=== PATIENT | female | born 1945 | race Caucasian/White ===

== ENCOUNTER 2020-07-23 06:36 | Emergency (ER) | payer OTHER, SELFPAY ==
[2020-07-23 06:41] VITALS: BP 189/115; PULSE 70; RESP 16; TEMP 36.4; O2SAT 98
--- NOTE | 2020-07-23 06:45 | DI.CT_ITS ---
Exam(s) CT RENAL COLIC WO EXAM: CT RENAL COLIC WO CLINICAL HISTORY: right flank pain. TECHNIQUE: Imaging Protocol: Axial computed tomography images with coronal and sagittal reformatted images were created and reviewed. COMPARISON: No exams were available for comparison FINDINGS: ABDOMEN: Lung Bases: Normal where visualized. Liver: Normal density. 1.9 cm right hepatic cyst. Gallbladder and biliary tract: No radiodense calculus or biliary ductal dilation. Pancreas: Normal density, no abnormal calcifications or inflammatory process. Spleen: Normal. Kidneys: Normal size, contour and axis.No radiodense stones or obstructive uropathy. No masses seen. Adrenal glands: No mass is seen. Lymph nodes: Within normal limits. Abdominal Aorta: Abdominal portion non-dilated. Mild atherosclerosis. PELVIS: Bladder:Symmetric distention, no gross wall thickening. Bowel: No obstruction or bowel wall thickening. No evidence of appendicitis. Diverticulosis of the s igmoid colon, but no evidence of acute diverticulitis. Peritoneal cavity: No ascites, collection or mesenteric inflammatory response. No free air. Reproductive organs: There is a 2.9 x 2.8 cm right ovarian cyst. The reproductive organs are otherwi se unremarkable. Bones: Within normal limits. Soft Tissues: Within normal limits. IMPRESSION: No acute abdominal or pelvic process. RADIATION DOSE DELIVERED: 1,211.12mGy.cm Total DLP DATA REPOSITORY: All CT scans at this facility are submitted to the National Radiology Data Registry (NRDR) Dose Index Registry (DIR) with the [employer] (A[employer]). RADIATION OPTIMIZATION: All CT scans at this facility use at least one of these dose optimization te chniques: automated exposure control; mA and/or kV adjustment per patient size (includes targeted exa ms where dose is matched to clinical indication); or iterative reconstruction.
--- NOTE | 2020-07-23 06:48 | ED.GENADUL_ITS ---
Discharge Plan Disposition Patient Disposition: HOME Condition: Good Discharge Details Clinical Impression: Back pain, UTI (urinary tract infection) Primary Care Provider: Radha Maynard ED Provider: Michael Her Meds and New Rx's Prescriptions: New lidocaine 5 % adhesive patch,medicated 1 patch topical DAILY Qty: 15 RF: 0 cephalexin 500 mg capsule 500 mg PO TID Qty: 21 RF: 0 Continued metoprolol succinate 50 mg Capsule,Sprinkle,Er 24hr 50 mg PO QAM RF: 0 hydrochlorothiazide 25 mg Tablet RF: 0 Discharge Instructions Instructions: Urinary Tract Infection in Women (ED), Back Pain (ED) Additional Instructions: Back pain appears to be musculoskeletal but you do have evidence of UTI. Treat pain with alternating doses of Tylenol 1 gram and 4 hours later Motrin 400 to 600 mg as needed. Try heat and stretching. Lidocaine patches as directed. We will treat for the UTI as well so be sure to get the antibiotic. Follow up with your doctor this week. Return to ED if worse pain, abdominal pain, fever, vomiting. Referrals: Primary Care Provider [Outside] Discharge Data Discharge Date/Time-TO BE ENTERED AT DEPARTURE: 07/23/20 09:10 Discharge Physician: Michael Her Medical Decision Making Elderly female presenting with right flank pain that wraps around to the front. Pain initially intermittent now constant. Denies fever or urinary symptoms. Has had appendectomy but still has gallbladder. Does not have abdominal tenderness on exam. Has no CVAT. Will place IV give ondansetron and ketorolac for symptoms. Send urinalysis as well as CBC and BMP. CT stone study ordered. CBC and BMP are unremarkable. White count is normal. Urinalysis positive for leukocyte esterase and on micro has white cells and bacteria but no epithelial cells very suggestive of UTI. CT scan is negative for any acute pathology. Specifically no stones seen. No stranding or swelling of the right kidney. Patient reports some relief with ketorolac IV but still pain with movement. Reexam shows that she continues to have no CVAT. Pain is more lower lumbar area and able to reproduce with palpation in one specific area, suggesting musculoskeletal in nature. We will go ahead and give a dose of ceftriaxone and continue treatment of the UTI with cephalexin. Not convinced this is pyelonephritis. We will treat the back pain with acetaminophen and ibuprofen as well as lidocaine patches. Heat, stretching, massage. Follow-up with primary care next week. Return to ED for fever, mental status changes, vomiting, abdominal pain, worsening back pain, other concerns. Differential Diagnosis Differential Diagnosis: Renal colic, pyelonephritis, gallbladder disease Lab Data Lab results reviewed: Yes I reviewed the patient's lab results. HPI General Mode of arrival: ambulatory . Date/Time Provider Initiated Documentation: 07/23/20 06:38 . Limitations to Documentation: no limitations . Information obtained by: patient and RN notes reviewed . HPI Narrative: Patient presents with right flank pain for the last 4 days. Initially, started as an intermittent pain that would come and go. Now constant but waxes and wanes in terms of intensity. She has associated nausea throughout the day but no vomiting. Denies any urinary symptoms. Denies fever. Pain does seem to wrap around towards the front. She has not taken anything for the pain as she was not sure what was causing it. Initially thought probably just musculoskeletal pain from working out in the yard. Now pain much more intense. Not worse with movement. Unable to tolerate the pain this morning and presents to the ED. Related Data Home Medications Medication Instructions Recorded Confirmed cephalexin 500 mg PO TID #21 cap 07/23/20 hydrochlorothiazide 07/23/20 lidocaine 1 patch TOPICAL DAILY #15 ea 07/23/20 metoprolol succinate 50 mg PO QAM 07/23/20 07/23/20 Previous Rx's Medication Instructions Recorded cephalexin 500 mg PO TID #21 cap 07/23/20 lidocaine 1 patch TOPICAL DAILY #15 ea 07/23/20 Allergies Allergy/AdvReac Type Severity Reaction Status Date / Time codeine Allergy Unverified 07/23/20 09:33 General Stated Complaint: FlankPain MORE: 3 Review of Systems Narrative: As documented in HPI otherwise negative as below. Const: no fever, chills, weakness Resp: no cough, SOB, pleuritic pain CV: no CP, diaphoresis, edema, syncope GI: no vomiting, diarrhea Neuro: no headache, numbness, focal weakness, confusion PFSH Medical History Hypertension Surgical History Hx of appendectomy Social History Smoking/Tobacco Use Status: Never Smoking risk assessment performed?: Yes Alcohol Intake: never Substance use type: does not use Do you feel safe at home: Yes Do you feel safe in your relationship?: Yes Exam Narrative Exam Narrative: Const: Obese elderly female in NAD. HEENT: NC/AT. Normal facial exam. Eyes: Normal conjunctiva and sclera. Neck: Supple. Trachea midline. Lungs: Normal respiratory effort. Lungs are clear. Cor: RRR without murmur/gallop. GI: Soft. NT/ND. No guarding or rebound. Back: No CVAT Neuro: A+O x 3. Normal speech, mentation, gait. Cranial nerves II - XII grossly intact. No gross motor or sensory deficit. Ext: No C/C/E. Skin: Warm and dry without rash. Course Vital Signs Vital signs: Vital Signs Temperature 97.5 F L 07/23/20 06:41 Pulse 70 07/23/20 06:41 Respiratory Rate 16 07/23/20 06:41 Blood Pressure 189/115 H 07/23/20 06:41 Pulse Oximetry 98 07/23/20 06:41 Temperature 97.5 F L 07/23/20 06:41 Temperature Source Skin 07/23/20 06:41 Pulse 70 07/23/20 06:41 Respiratory Rate 16 07/23/20 06:41 Blood Pressure 189/115 H 07/23/20 06:41 Pulse Oximetry 98 07/23/20 06:41 Pain Level 8 07/23/20 06:41
[2020-07-23 06:52] VITALS: BP 213/104
[2020-07-23 07:07] LABS: Bilirubin Negative (Negative); Blood Negative (Negative); Clarity Clear (Clear); Glucose Negative (Negative); Ketones Negative (Negative); Leukocyte Esterase Moderate (Negative); Nitrite Negative (Negative); Specific Gravity 1.025 (1.005-1.025); Urobilinogen 0.2 EU/dL (Up TO 0.2); pH 5.5 (5-8)
[2020-07-23 07:12] LABS: RBC 0-2 HPF (0-2)
[2020-07-23 07:13] LABS: Bacteria Moderate HPF (Negative); C & S Indicated? Yes; Casts Negative LPF (Negative); Crystals Negative HPF (Negative); Epithelial Cells Few HPF (Negative); Mucus Negative (Negative)
[2020-07-23] MEDS: Ondansetron 4 MG/2 ML VIAL IVP (07:30)
[2020-07-23] MEDS: Normal Saline Flush 10 ML SYR IVP (07:35)
[2020-07-23] MEDS: Ketorolac 30 MG/ML VIAL 15 MG IVP (07:35)
--- NOTE | 2020-07-23 08:14 | DI.VRAD_ITS ---
PROCEDURE INFORMATION: Exam: CT Abdomen And Pelvis Without Contrast Exam date and time: 07/23/2020 6:59 AM Age: 75 years old Clinical indication: Nausea and other: Right flank pain TECHNIQUE: Imaging protocol: Computed tomography of the abdomen and pelvis without contrast. Radiation optimization: All CT scans at this facility use at least one of these dose optimization techniques: automated exposure control; mA and/or kV adjustment per patient size (includes targeted exams where dose is matched to clinical indication); or iterative reconstruction. COMPARISON: No relevant prior studies available. FINDINGS: Liver: Simple hepatic cyst in the right lobe measures 16 mm Gallbladder and bile ducts: Normal. No calcified stones. No ductal dilation. Pancreas: Normal. No ductal dilation. Spleen: Normal. No splenomegaly. Adrenal glands: Normal. No mass. Kidneys and ureters: Normal. No hydronephrosis. Stomach and bowel: Colonic diverticulosis is present without evidence for inflammation. Appendix: No evidence of appendicitis. Intraperitoneal space: Unremarkable. No free air. No significant fluid collection. Vasculature: Unremarkable. No abdominal aortic aneurysm. Lymph nodes: Unremarkable. No enlarged lymph nodes. Urinary bladder: Unremarkable as visualized. Reproductive: Unremarkable as visualized. Probable dominant ovarian follicular cyst present on the right. This measures 2.8 cm Bones/joints: Lumbar spine degenerative disc disease is noted. Soft tissues: Unremarkable. IMPRESSION: No acute findings Dictated and Authenticated by: Aden Maldonado MD. Ordering:TERESO Rodriguez MD
[2020-07-23] MEDS: cefTRIAXone 1 GM/50 ML BAG IVPB (08:37)
[2020-07-23 08:38] LABS: Abs Immature Grans 0.02 10^3/uL (0.0-0.06); Absolute Basophil Count 0.09 10^3/uL (0.0-0.2); Absolute Eosinophil Count 0.17 10^3/uL (0.0-0.7); Absolute Lymphocyte Count 2.78 10^3/uL (1.2-3.4); Absolute Monocyte Count 0.74 10^3/uL (0.1-0.8); Absolute Neutrophil Count 4.12 10^3/uL (1.2-6.7); Basophils % 1.1; Eosinophils % 2.1; HCT 46.3 % (36.0-46.0); HGB 15.1 g/dL (11.2-15.7); Immature Grans % 0.3; Lymphocytes % 35.1; MCH 27.7 pg (27.0-33.0); MCHC 32.6 % (32.0-36.0); Monocytes % 9.3; Neutrophils % 52.1; Nucleated RBC 0 %; Platelet Count 236 10^3/uL (130-400); RBC 5.45 10^6/uL (3.93-5.22); RDW-SD 40.4 fL; WBC 7.92 10^3/uL (4.4-10.8)
[2020-07-23 08:44] LABS: BUN 25 mg/dL (7-18); CREATININE 0.9 mg/dL (0.55-1.02); Calcium 9.2 mg/dL (8.5-10.1); Chloride 102 mmol/L (98-107); Glucose 102 mg/dL (74-106); Potassium 3.7 mmol/L (3.5-5.1); Sodium 141 mmol/L (136-145)
[2020-07-23] MEDS: Lidocaine 5% Patch 1 PATCH TP (09:00)
[2020-07-23 09:10] VITALS: BP 172/85; PULSE 72; RESP 16; TEMP 36.8; O2SAT 98
== END 2020-07-23 09:10 | disposition home or self-care (01) ==
LOC: ER 09:16
PROVIDERS: Emergency Provider Emergency Medicine; PCP Nurse Practitioner
DX: N39.0 Urinary tract infection, site not specified (principal); M54.9 Dorsalgia, unspecified; R11.0 Nausea
CPT/HCPCS: 80048; 96365; 96374; 96375; 99284; 74176; 81003; 81015; 85025; 87086; 99283; J0696; J1885; J2405

== ENCOUNTER → 2021-10-05 00:26 | Outpatient (CLI) | payer OTHER, SELFPAY ==
--- OUTSIDE RECORDS SUMMARY | 2021-10-05 00:27 | XMS_ITS | Encounter Summary ---
:1945 Author Organization [facility] Address [address] [facility] [place] [address] Care Team Providers Name Role Phone Joanne Weaver MD Primary Care Provider Encounter Details Date Type Department Care Team Description 03/20/2016 Hospital Encounter XRay at [facility] Arianna, Yovani Mitchell, S/P orthopedic [address] [place] surgery, follow-up [place], [place] [facility] [id number] [place] [phone] [place] [address] Social History Tobacco Use Types Packs/Day Years Used Date Never Smoker Alcohol Use Standard Drinks/Week Comments No 0 (1 standard drink = 0.6 oz pure alcoho l) Sex Assigned at Date Recorded Not on file documented as of this encounter Medications at Time of Discharge Medication Sig Dispensed Refills Start Date End Date meTOPROLOL tartrate Take 50 mg by mouth 2 0 (LOPRESSOR) 50 mg Tablet times daily. aspirin 81 mg EC tablet 0 06/22/2008 documented as of this encounter Plan of Treatment Scheduled Orders Name Type Priority Associated Diagnoses Order S chedule XR Ankle Stress Imaging Routine S/P orthopedic surgery, 1 Occurrences starting views Right follow-up exam 03/20/2016 un til 03/20/2016 documented as of this encounter Visit Diagnoses Diagnosis S/P orthopedic surgery, follow-up exam Follow-up examination, following other s urgery documented in this encounter Care Teams Sanforizer Relationship Specialty Start Date End Date Joanne Weaver MD PCP - General 01/16/10 [address] [place] [address] documented as of this encounter
--- OUTSIDE RECORDS SUMMARY | 2021-10-05 00:27 | XMS_ITS | Encounter Summary ---
:1945 Author Organization [facility] [place] [address] Care Team Providers Name Role Phone Joanne Weaver MD Primary Care Provider Reason for Referral Physical Therapy (Routine) - Specialty Diagnoses / Procedures Referred By Contact Refer red To Contact Physical Therapy Diagnoses Closed fracture of shaft of right fibula, unspecified fracture morphology, initial encounter Tl Greene MD [facility] [place] [address] Referral ID Status Reason Start Date Expiration Date Visits V isits Requested Authorized [id number] Evaluate and 04/16/2016 10/13/2016 12 12 Treat Reason for Visit Reason Comments Right Ankle Pain Encounter Details Date Type Department Care Team Description 04/16/2016 Office Visit Orthopaedics at [facility] Yovani Keller MD Closed fracture of [facility] of [facility] [address], [place] [phone] ORTHOPAEDIC fracture morphology, SURGERY initial encounter [place] [id number] Social History Tobacco Use Types Packs/Day Years Used Date Never Smoker Alcohol Use Standard Drinks/Week Comments No 0 (1 standard drink = 0.6 oz pure alcoho l) Sex Assigned at Date Recorded Not on file documented as of this encounter Last Filed Vital Signs Vital Sign Reading Time Taken Comments Blood Pressure 189/90 04/16/2016 2:11 PM EST Pulse 85 04/16/2016 2:11 PM EST Temperature - - Respiratory Rate - - Oxygen Saturation - - Inhaled Oxygen Concentration - - Weight 86.2 kg (190 lb) 04/16/2016 2:11 PM EST Height 154.9 cm (5' 1) 04/16/2016 2:11 PM EST Body Mass Index 35.9 04/16/2016 2:11 PM EST documented in this encounter Progress Notes Tl Greene MD - 04/16/2016 2:20 PM EST Date of surgery is 03/06/2016. Surgery is open reduction, internal fixation of right syndesmosis. INTERVAL HISTORY: Kristi Quiroz is a very pleasant 70-year-old female being seen today in routine followup. She is doing well. She is not having any discomfort bearing weight. She has not been ambulating; however, she does stand and bear weight. She is pleased with her progress thus far. Her wound has healed up nicely. She is not taking any narcotics. She uses a crutch to ambulate. PHYSICAL EXAM: General: No acute distress. Awake, alert, and oriented. Right lower extremity exam reveals a well-healed surgical incision. There is no erythema, discharge, or purulence. There is no fluctuance noted. She has sensation intact to light touch in the superficial peroneal, deep peroneal, and tibial nerve distributions. Intact EHL, FHL, tibial anterior, and gastrocnemius-soleus complex. Her toes were warm and well perfused. She has minimal pedal edema. IMAGING: Multiple views of the right ankle were obtained, and they were reviewed today with the patient. These demonstrate intact hardware in appropriate position. These were reviewed with the patient. They show an intact and congruent ankle mortise. There is no evidence of screw or hardware complication. ASSESSMENT/PLAN: A 70-year-old female presenting 6 weeks status post syndesmotic fixation with TightRope and screw. She is doing well. Plan going forward will be to begin to advance weightbearing approximately 2 weeks, approximately 25% per week. We will schedule a followup appointment for her in 6 weeks with x-rays prior; however, if she is feeling well and doing great, she can cancel this appointment. We offered her physical therapy; however, she denied this. She is not interested. If she calls back and changes her mind, we will be happy to prescribe this for her. Yovani Keller MD - 04/16/2016 2:20 PM EST I saw the patient in conjunction with Dr. Tl Greene and agree with his assessment and plan. Recovering well status post ORIF of syndesmosis. We looked at her x-rays and discussed plans moving forward. Plan as outlined in Dr. Greene's note. documented in this encounter Plan of Treatment Scheduled Referrals Name Type Priority Associated Diagnoses Order S chedule Referral to Outpatient Referral Routine Closed fracture of Or dered: Physical Therapy shaft of right 7 fibula, unspecified fracture morphology, initial encounter documented as of this encounter Visit Diagnoses Diagnosis Closed fracture of shaft of right fibula , unspecified fracture morphology, initial encounter documented in this encounter Care Teams Refractory Grinder Operator Relationship Specialty Start Date End Date Joanne Weaver MD PCP - General 01/16/[address] [place] [id number] documented as of this encounter
--- OUTSIDE RECORDS SUMMARY | 2021-10-05 00:27 | XMS_ITS | Encounter Summary ---
:1945 Author Organization [facility] [place] [address] Care Team Providers Name Role Phone Joanne Weaver MD Primary Care Provider Encounter Details Date Type Department Care Team Description 02/27/2016 Hospital Encounter XRay at [facility] Arianna, Julio César Flores fracture [address] [facility] [id number] [place] [phone] [place] [address] Social History Tobacco Use Types Packs/Day Years [...] by mouth 2 0 (LOPRESSOR) 50 mg times daily. Tablet aspirin 81 mg EC 0 06/22/2008 tablet oxyCODONE (ROXICODONE) Take 1 tablet by mouth 25 tablet 0 0 03/06/2016 03/20/2016 5 mg Tablet every 4 hours as needed. traMADol (ULTRAM) 50 Take 1-2 tablets by 30 tablet 0 201503/06/2016 mg Tablet mouth every 4 hours as needed for Pain. Use the minimum amount of this medication. Take as infrequently as possible. Ween off of this medication as rapidly as possible. ondansetron Take 1 tablet by mouth 20 tablet 1 02/23/2016 0 03/20/2016 (ZOFRAN-ODT) 8 mg every 8 hours as needed Tablet, Rapid Dissolve for Nausea. cephALEXin (KEFLEX) 0 06/22/200803/20 500 mg capsule documented as of this encounter Plan of Treatment Not on filedocumented as of this encounter Procedures Procedure Name Priority Date/Time Associated Diagnosis Comme nts XR CHEST PA AND Routine 02/27/2016 2:08 PM Maisonneuve fractur e Results for this LATERAL EST procedure are i n the results section. documented in this encounter Results XR Chest PA & Lateral (Generic) (02/27/2016 2:08 PM EST) Anatomical Region Laterality Modality Chest N/A Digital Radiography Specimen (Source) Anatomical Location Collection Method / Collectio n Time Received Time / Laterality Volume Impressions 02/27/2016 2:43 PM EST No acute cardiopulmonary process. I have personally reviewed the image(s) and the residents interpretation and agree with the findings, Karis jensen t 02/27/2016 2:43 PM Narrative 02/27/2016 2:43 PM EST EXAMINATION: XR CHEST PA AND LATERAL (GENERIC) CLINICAL HISTORY: Preoperative TECHNIQUE: PA and lateral sitting uprigh t chest radiographs COMPARISON: Chest radiograph October 252015 FINDINGS: Lungs are symmetrically expanded and cong ar. There is no pneumothorax or pleural effusion. Cardiac silhouette, juan and p ulmonary vasculature are within normal limits. Procedure Note Karis Jacobs MD - 02/27/2016Formatt ing of this note might be different from the original. EXAMINATION: XR CHEST PA AND LATERAL (GE GloopleIC) CLINICAL HISTORY: Preoperative TECHNIQUE: PA and lateral sitting uprigh t chest radiographs COMPARISON: Chest radiograph October 252015 FINDINGS: Lungs are symmetrically expanded and cong ar. There is no pneumothorax or pleural effusion. Cardiac silhouette, juan and p ulmonary vasculature are within normal limits. IMPRESSION No acute cardiopulmonary process. I have personally reviewed the image(s) and the residents interpretation and agree with the findings, Karis bravo 02/27/2016 2:43 PM Yovani Keller MD IMG DX ORDERABLES documented in this encounter Visit Diagnoses Diagnosis Maisonneuve fracture documented in this encounter Care Teams Occupational Therapy Director Relationship Specialty Start Date End Date Joanne Weaver MD PCP - General 01/16/10 [address] [place] [address] documented as of this encounter
--- OUTSIDE RECORDS SUMMARY | 2021-10-05 00:27 | XMS_ITS | Encounter Summary ---
:1945 Author Organization [facility] [place] [address] Care Team Providers Name Role Phone Joanne Weaver MD Primary Care Provider Encounter Details Date Type Department Care Team Description 03/06/2016 Hospital Encounter Same Day Program at [facility], Yovani Mitchell, Ankle fracture, Ginny Oseguera MD right, closed, [facility] initial encounter [facility] (Primary Dx) [place], [place] SURGERY [id number] [place] [address] [facility] Social History Tobacco Use Types Packs/Day Years Used Date Never Smoker Alcohol Use Standard Drinks/Week Comments No 0 (1 standard drink = 0.6 oz pure alcoho l) Sex Assigned at Date Recorded Not on file documented as of this encounter Last Filed Vital Signs Vital Sign Reading Time Taken Comments Blood Pressure 196/156 03/06/2016 4:00 PM EST Pulse 57 03/06/2016 3:14 PM EST Temperature 37 ??C (98.6 ??F) 03/06/2016 11:58 AM EST Respiratory Rate 18 03/06/2016 3:14 PM EST Oxygen Saturation 99% 03/06/2016 4:00 PM EST Inhaled Oxygen Concentration - - Weight 88.5 kg (195 lb) 03/06/2016 11:58 AM EST Height 154.9 cm (5' 1) 03/06/2016 11:58 AM EST Body Mass Index 36.84 03/06/2016 11:58 AM EST documented in this encounter Discharge Instructions Discharge InstructionsTierce-Hazard, Tali E - 03/06/2016 4:19 PM EST 1. You have received medication before and/or during your procedure, which affects judgment and reaction time. 2. Do not drive, operate machinery, drink alchololic beverages, or make important decisions for 24 hours. 3. Be careful on stairs, as you may be unsteady on your feet. 4. You may eat a regular diet as tolerated. 5. Do not smoke if you are alone. 6. IV site- slight redness or tenderness is normal, you can use warm compresses. If tenderness and redness increases or foul drainage occours, please contact your M.D. Patient InstructionsFletcher Morrell MD - 03/06/2016 3:07 PM EST Orthopaedic Surgery Same Day Discharge Instructions [id number] Kristi Quiroz Discharge Instructions: Activity: ??? Do not bear weight (no pushing, pulling or lifting) with the operative extremity until your follow-up appointment. ??? Keep the operative extremity elevated above the level of the heart as much as possible for the next few days to help reduce swelling and pain. ??? Intermittently apply ice to the outside of the dressing for 20 minutes at a time throughout the first few days following surgery. This will help reduce pain and swelling. Keep a close eye on your skin to prevent ice ascencio. Dressings: Keep the splint placed in the operating room in place until you are seen back in follow-up. Bathing/showering: You should not let your wounds or dressings get wet until you are seen in follow-up. If you are going to shower, leave the splinted extremity out of the water, or cover with a sturdyplastic bag taped securely at the top prior to showering to prevent water from seeping in. It may beeasier to sponge bathe for now. Medications: 1. You will be sent home with, a narcotic medication. Take this medication for pain as needed. Try to taper your use over the next week or two as your post- operative pain improves 2. The pain medication you are on can cause constipation, so increase your intake of fluids and fiber while you are taking them. You may also take an ijme-nhw-xjyjtxo stool softener, like Senokot, to facilitate a bowel movement. 3. If you need a renewal on your narcotic pain medication, you need to give the Orthopedic clinic enough time to process your request. This can take up to three days, so plan accordingly. 4. No driving is allowed if taking narcotic pain medications. 5. You have also been prescribed Aspirin. This medication is being used for its blood-thinning properties to help prevent blood clots while you are less mobile and active. Take this medication 81 mg twice daily as prescribed. Again, this medication has not been prescribed as a pain-reliever, so you should take it even when you are feeling comfortable. Avoid anti-inflammatory type medications (also called NSAIDs) including ibuprofen, motrin, Advil, naproxen, naprosyn, and Alleve for the next 3 months. There is some evidence that these may slow bone remodeling, which would inhibit healing of your rotator cuff repair/fracture. Call the Orthopaedic Clinic ([phone] during business hours -; after-hours or on weekends [phone] and ask for the Ortho resident on-call ) if you develop: fevers, chills, night sweats, nausea, vomitng, wound discharge, as well as numbness, tingling, increased pain, pain with active or passive extension of fingers/toes in the affected limb, or other questions or concerns. Future Appointments Date Time Provider Department Center 03/20/2016 3:30 PM Yovani Keller MD [facility] [address] [facility] documented in this encounter Medications at Time of Discharge Medication Sig Dispensed Refills Start Date End Date meTOPROLOL tartrate Take 50 mg by mouth 0 (LOPRESSOR) 50 mg Tablet 2 times daily. aspirin 81 mg EC tablet 0 06/22/2008 oxyCODONE (ROXICODONE) 5 Take 1 tablet by 25 tablet 0 03/0603/20/2016 mg Tablet mouth every 4 hours as needed. ondansetron (ZOFRAN-ODT) Take 1 tablet by 20 tablet 1 02/2203/20/2016 8 mg Tablet, Rapid mouth every 8 hours Dissolve as needed for Nausea. cephALEXin (KEFLEX) 500 0 06/22/2008 0 03/20/2016 mg capsule documented as of this encounter Progress Notes Gilberto Rutherford RN - 03/06/2016 12:18 PM EST Images from the original note were not included. Patient Name: Kristi Quiroz Patient Age: 70 y.o. Birthdate: 1945 Admit date: 03/06/2016 Attending Physician: Yovani Keller MD Skin: documented in this encounter H&P Notes Yovani Keller MD - 03/06/2016 11:38 AM EST The patient's history and physical exam have been reviewed. There has been no interval change from that of the pre-operative history and physical exam performed within the last 30 days. This patient isundergoing an orthopaedic surgical procedure. We will utilize nonpharmacological modalities to help with pain, however, this patient will require narcotic pain medication to treat acute, post-surgical,pain. The patient will be instructed to wean from these medications as soon as reasonably possible. The Patient has read, signed and understands the Acute Opioid Therapy Informed Consent. The Prescription Drug monitoring website has been queried and and this query recorded in the electronic medical record. Opioid PDMP 02/27/2016 [place] PDMP Query Date 03/06/2016 I spoke with and examined the patient on the date of the primary author's note, prior to proceeding to the operating room. I agree with the primary author's assessment and plan. I reviewed the risks, benefits, alternatives to, and recovery from the proposed procedure. I confirmed the correct operativesite. The patient expressed understanding and wished to proceed with operative treatment. Yovani Keller MD MS Orthopaedic Surgery Attending documented in this encounter Miscellaneous Notes Op Note - Yovani Keller MD - 03/06/2016 3:12 PM EST Operative Note ?? Patient Name: Kristi Quiroz : [id number] MR#: [id number] ?? Case Date: 03/06/2016 ?? Surgeon: Surgeon(s) and Role: * Yovani Keller MD - Primary * Fletcher Morrell MD - Resident-Net Software Developer ?? Preoperative diagnosis: Maisonneuve fracture right ankle ?? Postoperative diagnosis: Same ?? Procedure(s): ORIF SYNDESMOSIS, RIGHT ANKLE (WRVU 8.8) ? Anesthesia: General, Regional ?? Findings: Syndesmosis well reduced with tightrope ?? Complications: None known ? Fluids: Per anesthesia ?? Estimated Blood Loss: 5 cc ?? Drains: None known ?? Disposition: awakened from anesthesia, extubated and taken to the recovery room in a stable condition, having suffered no apparent untoward event. ?? Condition: doing well without problems ?? Infection Bundle used? N/A INDICATIONS: The patient is a 70-year-old female who fell and sustained a syndesmotic injury to her right ankle with a high fibula fracture. After discussing the risks and benefits of proceeding with operative fixation, she elected to proceed. Implant Name Type Inv. Item Serial No. Cribbing Setter Lot No. LRB No. Used Action KIT,REPAIR,KNOTLESS,TIGHTROPE ([id number]) - [id number] IMPLANTS KIT,REPAIR,KNOTLESS,TIGHTROPE ([id number]) [employer] - [id number] Right 1 Implanted SCREW,CRTX,STAP,3.5X45MM ([id number]) - [id number] IMPLANTS SCREW,CRTX,STAP,3.5X45MM ([id number]) [employer] - [id number] Right 1 Implanted DESCRIPTION OF PROCEDURE: The patient was met and greeted in the preoperative holding area. Consent was confirmed, and the site was marked. She received a block by the Anesthesia Block Team. She was brought into the operating suite and laid supine on the operating table, where anesthetic was administered by the anesthesia team. A C-arm was brought in to obtain a true lateral of the unaffected ankle for comparison. At that point, the right lower extremity was then prepped and draped in typical sterile fashion. Timeout was performed in accordance with [facility] universal protocol. We made an incision directly over the lateral aspect of fibula, spread down with tenotomy scissors to the lateral bone of the fibula after incising with a 15 blade approximately 3 cm. Once down to the bone,we used C-arm and fluoroscopy guidance to place a pin across this tib-fib joint aiming approximately 20 degrees anterior, starting on the lateral cortex of the fibula, going through all 4 cortices. The syndesmosis was heldreduced while this was placed. Once we had pinned the tib-fib into place and found that it could be closed down, we took a lateral c-arm image to confirm our reduction. The lateral was identical to the contralateral side. We then over-drilled all 4 cortices with the tightrope drill. We then passed the tightrope through with the needle, through all 4 cortices, flipped the toggle on the medial aspect, and then gradually tightened the tightrope down to the lateral cortex of the fibula. While holding the ankle in dorsiflexion. We brought in C-arm imaging, again confirming reduction of the syndesmosis. At that point, with the tightrope completely tightened down after toggling, we placed a 3.5 cortical screw 4 to 5 mm superior in the same trajectory as the tightrope, first by drilling with a 2.5 drill bit across the fibula and tibia, again aiming 20 degrees anterior and parallel to the joint line. We then placed a 45 mm screw after measuring with the measuring device. We irrigated the wound thoroughly, confirmed fluoroscopic imaging our C-arm and reduction, and then irrigated the wound thoroughly and placed two 2-0 buried Vicryl sutures, then three 3-0 nylon sutures in a vertical mattress interrupted fashion. There were no major issues. She was then placed in a posterior slab and U splint, covered by Xeroform 4 x 4s and sterile Webril. Brief Op Note - Yovani Keller MD - 03/06/2016 2:55 PM EST Brief Operative Note Patient Name: Kristi Quiroz : [id number] MR#: [id number] Case Date: 03/06/2016 Surgeon: Surgeon(s) and Role: * Yovani Keller MD - Primary * Fletcher Morrell MD - Resident-Net Software Developer Preoperative diagnosis: Maisonneuve fracture right ankle Postoperative diagnosis: Same Procedure(s): ORIF SYNDESMOSIS, ANKLE (WRVU 8.8) Anesthesia: General, Regional Findings: Syndesmosis well reduced with tightrope Complications: None known Fluids: Per anesthesia Estimated Blood Loss: 5 cc Drains: None known Disposition: awakened from anesthesia, extubated and taken to the recovery room in a stable condition, having suffered no apparent untoward event. Condition: doing well without problems Infection Bundle used? N/A Attestation: Case Date: 03/06/2016 I was present and I participated during the entire procedure (does not need to include opening and closing). (Please see the Surgical Encounter Summary for any Implant and Specimen details pertinent to this patient.) documented in this encounter Plan of Treatment Not on filedocumented as of this encounter Procedures Procedure Name Priority Date/Time Associated Diagnosis Comme nts XR FLUORO NO RAD Routine 03/06/2016 3:00 PM Resul ts for this <1HR - OR USE EST procedure are in the results section. MODIFIER SMALL 03/06/2016 2:00 PM Maisonneuve fracture FRAGMENT SYNTHES EST right ankle ORIF SYNDESMOSIS, 03/06/2016 2:00 PM Maisonneuve fract ure ANKLE (WRVU 8.8) EST right ankle ORIF SYNDESMOSIS, Routine 03/06/2016 11:34 AM ANKLE EST documented in this encounter Results XR Fluoro No Rad <1Hr - OR Use (03/06/2016 3:00 PM EST) Specimen (Source) Anatomical Location Collection Method / Collectio n Time Received Time / Laterality Volume Narrative RAD - 03/06/2016 3:52 PM EST This order does not need a radiologist i nterpretation. ?? Yovani Keller MD IMG FLUORO ORDERABLES Performing Organization Address City/State/ZIP Code Phon e Number RAD RAD [place], [place] documented in this encounter Visit Diagnoses Diagnosis Ankle fracture, right, closed, initial e ncounter - Primary documented in this encounter Administered Medications Inactive Administered Medications - up to 3 most recent administrations Medication Order MAR Action Action Date Dose Rate Site fentaNYL 50mcg/mL injection Given 03/06/2016 12:35 PM EST 25 mcg 25 mcg, Intravenous, EVERY 5 MIN PRN, Starting on Fri03/05/16 at 1703, Until Fri03/06/16 at 1901, Pain, block sedation, Routine lactated ringers infusion 1,000 New Bag 03/06/2016 12:00 PM ES T 1,000 mLs 100 mL/hr mL 1,000 mL, at 100 mL/hr, Intravenous, CONTINUOUS, Starting on Fri03/06/16 at 1200, Until Fri03/06/16 at 1656, Day of Surgery (Day of Procedure) midazolam (PF) (VERSED) 1 mg/mL injectio n 1 mg Given 03/06/2016 12:30 PM EST 1 mg 1 mg, Intravenous, EVERY 5 MIN PRN, Starting on Fri03/05/16 at 1703, Until Fri03/06/16 at 1901, block, Routine scopolamine Patch Applied 03/06/2016 12:45 PM 1 patch 0 1- Ear Behind (TRANSDERM-SCOP) 1.5 mg (1 EST (Left) mg over 3 days) patch 1 patch 1 patch, Transdermal, EVERY 72 HOURS, First dose on Fri03/06/16 at 1245, Until Discontinued, Routine documented in this encounter Active and Recently Administered Medications Times are shown in EST. Scheduled Medication Order 03/04/2016 03/05/2016 03/06/2016 ceFAZolin (ANCEF) 2g in dextrose 5% 50 mL (COMPLETED) 1415 (Given - Provider: Angela Weber CRNA) 2 g, Intravenous, EVERY 3 HOURS, 1 dose, First dose on Fri03/06/16 at 1200, Administer over 30 Minutes, Redose after 3 hours., Intra-Operative (Intra- Procedure), Indication for (Active or Suspected): Prophylaxis scopolamine (TRANSDERM-SCOP) 1.5 mg (1 mg over 3 days) patch 1 p atch 1245 (Patch Applied - Provider: Gilberto Rutherford RN) 1 patch, Transdermal, EVERY 72 HOURS, Fi rst dose on Fri03/06/16 at 1245, Until Discontinued, Routine Continuous Medication Order 03/04/2016 03/05/2016 03/06/2016 lactated ringers infusion 1,000 mL 1200 (New Bag - Provider: Gilberto Rutherford, RN) 1,000 mL, at 100 mL/hr, Intravenous, CON TINUOUS, Starting Fri03/06/16 at 1200, Until Fri03/06/16 at 1656, Day of Surgery (Day of Procedure) PRN Medication Order 03/04/2016 03/05/2016 03/06/2016 fentaNYL 50mcg/mL injection 1235 (Given - Provider: Gilberto Rutherford, RN) 25 mcg, Intravenous, EVERY 5 MIN PRN, St arting 03/05/16 at 1703, Until Fri03/06/16 at 1901, Pain, block sedation, Routine lidocaine (XYLOCAINE) 10 mg/mL (1 %) injection 3 mg 3 mg (0.3 mL), Subcutaneous, ONCE PRN, 1 dose, Starting Fri03/06/16 at 1139, Until Fri03/06/16 at 1656, for discomfort with PIV insertion, Day of Surgery (Day of Procedure), Routine midazolam (PF) (VERSED) 1 mg/mL injection 1 mg 1230 (Given - Provider: Gilberto Rutherford, RN) 1 mg, Intravenous, EVERY 5 MIN PRN, Star ting 03/05/16 at 1703, Until Fri03/06/16 at 1901, block, Routine sodium chloride 0.9 % flush 5-20 mL 5-20 mL, Intravenous, EVERY 1 MIN PRN, S tarting Fri03/06/16 at 1139, Until Fri03/06/16 at 1656, flush, Flush pertains to all indwelling lines. Flush per protocol found in the job aid using the link prov ided on this medication record., Day of Surgery (Day of Procedur e), Routine No Frequency Medication Order 03/04/2016 03/05/2016 03/06/2016 fentaNYL Citrate (PF) 100 mcg/2 mL (50 mcg/mL) syringe 1230 (Due) 1 dose, Starting 03/06/16 at 1222, Un til Carmelita 03/07/16 at 0029, GILBERTO RUTHERFORD: cabinet override documented in this encounter Care Teams Fine Craft Artist Relationship Specialty Start Date End Date Joanne Weaver MD PCP - General 01/16/[address] [place] [id number] documented as of this encounter
--- OUTSIDE RECORDS SUMMARY | 2021-10-05 00:27 | XMS_ITS | Encounter Summary ---
:1945 Author Organization [facility] [place] [address] Care Team Providers Name Role Phone Joanne Weaver MD Primary Care Provider Reason for Visit Reason Comments Right Ankle Pain Encounter Details Date Type Department Care Team Description 03/20/2016 Office Visit [facility]ed[facility] at [facility] [place]anna, Yovani Mitchell MD S/P orthopedic surgery, follow-up exam ( Primary Dx); [facility] Ankle syn desmosis disruption, right, subsequent encounter; [facility] Ankle fracture, right, closed, with rout ine healing, [place] [address] ORTHOPAEDIC [phone] SURGERY [place], [place] [address] Social History Tobacco Use Types Packs/Day Years Used Date Never Smoker Alcohol Use Standard Drinks/Week Comments No 0 (1 standard drink = 0.6 oz pure alcoho l) Sex Assigned at Date Recorded Not on file documented as of this encounter Last Filed Vital Signs Vital Sign Reading Time Taken Comments Blood Pressure 193/91 03/20/2016 3:38 PM EST Pulse 67 03/20/2016 3:38 PM EST Temperature - - Respiratory Rate - - Oxygen Saturation - - Inhaled Oxygen Concentration - - Weight 86.2 kg (190 lb) 03/20/2016 3:38 PM EST Height 154.9 cm (5' 1) 03/20/2016 3:38 PM EST Body Mass Index 35.9 03/20/2016 3:38 PM EST documented in this encounter Progress Notes Sharla Love, SCRAP PICKER - 03/20/2016 3:30 PM EST Chief complaint: right ankle surgery. First global post op appointment. Problem List Items Addressed This Visit Right Maissoneuve fracture of proximal fibula Other Visit Diagnoses S/P orthopedic surgery, follow-up exam - Primary Relevant Orders XR Ankle Min 3 views Right (Generic) Durable Medical Equipment Order Ankle syndesmosis disruption, right, subsequent encounter Relevant Orders Durable Medical Equipment Order History of present illness: Kristi Quiroz is a 70 y.o. year-old female who is here for first global post op appointment. She is doing well. She has minimal pain and no longer using narcotic analgesics. She has been nonweightbearing with a plaster postop splint. She is using aspirin as directed in EDH for DVT prophylaxis. Her appetite is good. Mild constipation with narcotic use yet resolved sincediscontinuing pain medication. No interval falls or injuries. No fevers chills systemic or constitutional complaints. No calf pain, chest pain or shortness breath. Her health is been stable otherwise and she is here for first global post op appointment. Past medical history: Patient Active Problem List Diagnosis Date Noted ??? Right Maissoneuve fracture of proximal fibula 02/23/2016 Medications: ??? meTOPROLOL tartrate (LOPRESSOR) 50 mg Tablet ??? aspirin 81 mg EC tablet Allergies: Allergies Allergen Reactions ??? Acetaminophen CIS - Palpitations, high HR ??? Codeine Phosphate CIS - palpitations, elevated HR Social history: Social History Substance Use Topics ??? Smoking status: Never Smoker ??? Smokeless tobacco: Not on file ??? Alcohol use No Review of systems: No chest pain or shortness of breath No fevers, night sweats or chills Vital signs: Temp: -- BP (!) 193/91 (BP Location (NBP): Right arm, Patient Position: Sitting, BP Cuff Sizes: Adult (25-34 cm)) Pulse 67 Ht 154.9 cm (5' 1) Wt 86.2 kg (190 lb) BMI 35.9 kg/m2 Physical Exam: 70-year-old female in no acute distress. Here with her sister. Right lower extremity exam: Arrives in a wheelchair nonweightbearing plaster removed for examination. Surgical incision is well approximated with no erythema or evidence of infection. Surgical sutures removed by ATC tolerated well with Steri-Strips applied. There is no tenderness of the lateral ankle and syndesmosis. Mild dependent edema. Able wiggle her toes EHL/FHL 5/5. Tolerates gentle dorsiflexion 5??. Plantar flexion 20?? inversion eversion painless. 5/5 strength in peroneal and posterior tibialis tendon. Skin is warm anddry no diaphoresis. Foot is sensate and well perfused, DP and PT 2+ to palpation. Sensation intact to 1st webspace, medial and lateral sole and dorsum. Imaging: Personal review of the patient's imaging reveals: Right ankle x-ray reveals stable surgical repair of syndesmosis injury the right ankle. No hardware complications noted. Assessment: 70 y.o. year-old female is doing quite well approximately 2 weeks postop no complications noted. Plan: Dr Keller looked in on the patient and agrees with above. At this time, we will transition to a postop boot non-weightbearing for a total of 6 weeks postop. Advised to continue with oral aspirin forDVT prophylaxis as directed in the EDH. Avoid oral NSAID's to allow for optimal healing. She can usecool packs and acetaminophen prn for pain no greater than 3 grams per day for breakthrough pain. We did discuss the issue of hardware removal post op and she has essentially a low demand lifestyle and has no interest in surgical hardware removal in the future. She will continue to work with her home care OT/PT for ADL assistance. No weightbearing as stated above. Pt agrees, questions solicited/answered, will return as scheduled and as needed for concerns or questions. Pt understands they may also call us prn for above. Follow up: 4 weeks with a right ankle x-ray. Order in EDH. Sooner prn. This plan was discussed with the patient and they are in agreement. All of the patient's questions were answered. The above dictation was made with voice recognition software documented in this encounter Plan of Treatment Not on filedocumented as of this encounter Results XR Ankle Min 3 views Right (Generic) (04/16/2016 1:24 PM EST) Anatomical Region Laterality Modality Ankle Right Digital Radiography Specimen (Source) Anatomical Location Collection Method / Collectio n Time Received Time / Laterality Volume Narrative 04/16/2016 1:52 PM EST EXAMINATION: XR ANKLE MIN 3 VIEWS RIGHT (GENERIC) CLINICAL HISTORY: right ankle syndesmosi s ORIF. TECHNIQUE: ? COMPARISON: February 2016 FINDINGS: The cast is now removed. Bones: Fibula-the proximal fibular fracture, th e basilar no fracture, is not included on these images. Joints: No dislocation is seen. Syndesmosis-interval ORIF syndesmosis wi th placement of tight rope and transverse cortical screws that are unch anged in appearance and alignment. The ankle mortise remains congruent. Unchang ed tiny osteophytes arising from the medial malleolus. Small radiolucency at the medial talar dome is indeterminate for cartilage injury and degenerative ch leobardo. No osteochondral fragment seen. Soft tissue: Residual soft tissue swelli ng and presence of a small ankle effusion. A tubular soft tissue density traveling anterior to the Achilles tendon is suspicious for an accessory soleus muscl e. Impression 1. ??The proximal fibular fracture is no t included. 2. ??ORIF syndesmosis with no hardware c omplications and congruent ankle mortise. 3. ??Radiolucency at the medial talar do me, better seen on today's examination could be related to cartilage injury. 4. ??Possible presence of an accessory s oleus muscle. Procedure Note Yesica Denis MD - 04/16/2016Formatt ing of this note might be different from the original. EXAMINATION: XR ANKLE MIN 3 VIEWS RIGHT (GENERIC) CLINICAL HISTORY: right ankle syndesmosi s ORIF. TECHNIQUE: COMPARISON: February 2016 FINDINGS: The cast is now removed. Bones: Fibula-the proximal fibular fracture, th e basilar no fracture, is not included on these images. Joints: No dislocation is seen. Syndesmosis-interval ORIF syndesmosis wi th placement of tight rope and transverse cortical screws that are unch anged in appearance and alignment. The ankle mortise remains congruent. Unchang ed tiny osteophytes arising from the medial malleolus. Small radiolucency at the medial talar dome is indeterminate for cartilage injury and degenerative ch leobardo. No osteochondral fragment seen. Soft tissue: Residual soft tissue swelli ng and presence of a small ankle effusion. A tubular soft tissue density traveling anterior to the Achilles tendon is suspicious for an accessory soleus muscl e. Impression 1. The proximal fibular fracture is not included. 2. ORIF syndesmosis with no hardware com plications and congruent ankle mortise. 3. Radiolucency at the medial talar dome , better seen on today's examination could be related to cartilage injury. 4. Possible presence of an accessory dylan eus muscle. Yovani Keller MD IMG DX ORDERABLES documented in this encounter Visit Diagnoses Diagnosis S/P orthopedic surgery, follow-up exam - Primary Follow-up examination, following other s urgery Ankle syndesmosis disruption, right, sub sequent encounter Ankle fracture, right, closed, with rout ine healing, subsequent encounter S/P orthopedic surgery, follow-up exam Follow-up examination, following other s urgery documented in this encounter Care Teams Low Altitude Air Defense Officer Relationship Specialty Start Date End Date Joanne Weaver MD PCP - General 01/16/[address] [place] [phone] documented as of this encounter
--- OUTSIDE RECORDS SUMMARY | 2021-10-05 00:27 | XMS_ITS | Encounter Summary ---
:1945 Author Organization [facility] [address] Care Team Providers Name Role Phone Joanne Weaver MD Primary Care Provider Reason for Visit Reason Onset Date Comments Appointment 04/17/2016 Encounter Details Date Type Department Care Team Description 04/17/2016 Telephone Orthopaedics at [facility] Yovani Keller MD Appointment [facility] [place] [address] ORTHOPAEDIC SURGERY [phone] [place] [address] (Wo rk) Social History Tobacco Use Types Packs/Day Years Used Date Never Smoker Alcohol Use Standard Drinks/Week Comments No 0 (1 standard drink = 0.6 oz pure alcoho l) Sex Assigned at Date Recorded Not on file documented as of this encounter Miscellaneous Notes Telephone Encounter - Abbey Clark - 04/24/2016 3:41 PM EST No response from patient, letter sent Telephone Encounter - Abbey Clark - 04/23/2016 10:22 AM EST LMOM #2 to call to schedule appointment listed below Telephone Encounter - Flor Verma - 04/17/2016 9:45 AM EST LM#1 to schedule follow up with Dr Keller in 6 wks for XR 03/06/16 ORIF RIGHT SYNDESMOSIS ANKLE. documented in this encounter Plan of Treatment Not on filedocumented as of this encounter Visit Diagnoses Not on filedocumented in this encounter Care Teams Food Counter Attendant Relationship Specialty Start Date End Date Joanne Weaver MD PCP - General 01/16/[address] [place] [phone] documented as of this encounter
--- OUTSIDE RECORDS SUMMARY | 2021-10-05 00:27 | XMS_ITS | Encounter Summary ---
:1945 Author Organization [facility] [place] [address] Care Team Providers Name Role Phone Joanne Weaver MD Primary Care Provider Encounter Details Date Type Department Care Team Description 04/16/2016 Hospital Encounter XRay at [facility] Yovani Keller, S/P orthopedic [facility] surgery, follow-up [place], [place] [facility] exam [id number] [place] [phone] [place] [address] Social History Tobacco Use Types Packs/Day Years [...] Priority Date/Time Associated Diagnosis Comme nts XR ANKLE MIN 3 Routine 04/16/2016 1:24 PM S/P orthopedic Resul ts for this VIEWS RIGHT EST surgery, follow-up procedure are in exam the results section. documented in this encounter Results XR Ankle Min 3 [...] urgery documented in this encounter Care Teams Paintless Dent Repair Technician Relationship Specialty Start Date End Date Joanne Weaver MD PCP - General 01/16/[address] [place] [phone] documented as of this encounter
--- OUTSIDE RECORDS SUMMARY | 2021-10-05 00:27 | XMS_ITS | Encounter Summary ---
:1945 Author Organization [facility] [place] [address] Care Team Providers Name Role Phone Joanne Weaver MD Primary Care Provider Encounter Details Date Type Department Care Team Description 12/01/2020 Interpretation Only [facility], Radha Otto, [address] [place], [place] [address] [address] [place], [place] [phone] (Wo rk) Social History Tobacco Use Types Packs/Day Years Used Date Never Smoker Alcohol Use Standard Drinks/Week Comments No 0 (1 standard drink = 0.6 oz pure alcoho l) Sex Assigned at Date Recorded Not on file documented as of this encounter Plan of Treatment Not on filedocumented as of this encounter Procedures Procedure Name Priority Date/Time Associated Diagnosis Comme nts XR TOE(S) MIN 2 Routine 12/01/2020 3:26 PM Result s for this VIEW LEFT EDT procedure are i n the results section. documented in this encounter Results XR Toe(s) Min 2 view Left (Generic) (12/01/2020 3:26 PM EDT) P athologist Signature PT CLASS O DH RAD ADMITDTTM DH RAD PT SUNIL RUSSELL INFO [id number]^B DH RAD RISTOL^[place] NE EXAM DESC XRTOETVL^XR DH RAD LEFT TOES^RIS Anatomical Region Laterality Modality Left Radiographic Imaging Specimen (Source) Anatomical Location Collection Method / Collectio n Time Received Time / Laterality Volume Impressions 12/01/2020 4:06 PM EDT No acute findings. Thank you for letting us participate in the care of this patient. ??If you are a health care provider and have any questi ons regarding this report, please contact the number below. ??For patients who have questions please contact the health child care associate teacher that requested your imaging first. ? Electronically signed by: PAULETTE Adams MD, [facility] ([phone]), at 12/01/2020 4:06 PM Narrative 12/01/2020 4:06 PM EDT EXAMINATION: XR LEFT TOES CLINICAL HISTORY: pain in left third toe TECHNIQUE: 3 views of the left toes were obtained. COMPARISON: None FINDINGS: No acute fracture or dislocation. Soft tissues are within normal limits. Procedure Note Paulette Toth MD - 12/01/2020Formatt ing of this note might be different from the original. EXAMINATION: XR LEFT TOES CLINICAL HISTORY: pain in left third toe TECHNIQUE: 3 views of the left toes were obtained. COMPARISON: None FINDINGS: No acute fracture or dislocation. Soft tissues are within normal limits. IMPRESSION No acute findings. Thank you for letting us participate in the care of this patient. If you are a health care provider and have any questi ons regarding this report, please contact the number below. For patients w ho have questions please contact the health child care associate teacher that requested your imaging first. Electronically signed by: PAULETTE Adams MD, [facility] ([phone]), at 12/01/2020 4:06 PM Radha Maynard SIDING APPLICATOR IMG DX ORDERABLES documented in this encounter Visit Diagnoses Not on filedocumented in this encounter Care Teams Daub Color Mixer Relationship Specialty Start Date End Date Joanne Weaver MD PCP - General 01/16/10 [address] [place] [address] documented as of this encounter
--- OUTSIDE RECORDS SUMMARY | 2021-10-05 00:27 | XMS_ITS | Encounter Summary ---
:1945 Author Organization [facility] [place] [address] Care Team Providers Name Role Phone Joanne Weaver MD Primary Care Provider Encounter Details Date Type Department Care Team Description 02/27/2016 Clinical Support Same Day at [facility] [place] [address] Social History Tobacco Use Types Packs/Day Years Used Date Never Smoker Alcohol Use Standard Drinks/Week Comments No 0 (1 standard drink = 0.6 oz pure alcoho l) Sex Assigned at Date Recorded Not on file documented as of this encounter Progress Notes Suzanne Rosales RN - 02/27/2016 1:00 PM EST PAT questionnaire reviewed with patient while in Pre Admission testing. Pre- operative instruction booklet reviewed. Patient verbalizes a good understanding of all information reviewed. PLAN: Testing: Lab,EKG. Sent for CXR. Special medication instructions: Procedure date: 03-06. Pt states Had vomiting after a colo in [place], Dr Keller aware and will consider block to decrease this. documented in this encounter Plan of Treatment Not on filedocumented as of this encounter Procedures Procedure Name Priority Date/Time Associated Diagnosis Comme nts EKG 12-LEAD Routine 02/27/2016 1:32 PM Maisonneuve fracture R esults for this EST procedure are i n the results section . documented in this encounter Results EKG 12 Lead (02/27/2016 1:32 PM EST) Component Value Ref Range Test Analysis Performed Pathologis t Method Time At Signature Ventricular rate 53 BPM MUSE SYSTEM Atrial Rate 53 BPM MUSE SYSTEM P-R Interval 130 ms MUSE SYSTEM QRS Duration 112 ms MUSE SYSTEM Q-T Interval 446 ms MUSE SYSTEM QTC Calculated 418 ms MUSE SYSTEM (Bezet) Calculated P [place] 21 degrees MUSE SYSTEM Calculated R [place] 11 degrees MUSE SYSTEM Calculated T [place] 30 degrees MUSE SYSTEM INTERPRETATION Sinus bradycardia MUSE SY STEM Incomplete right bundle branch block Borderline ECG When compared with ECG of 22-JUN-2008 12:37, No significant change was found Confirmed by MD Iam, Elie ([id number]) on 02/27/2016 2:01:03 PM Specimen Anatomical Collection Method Collection Time Receive d Time (Source) Location / / Volume Laterality 02/27/2016 1:32 PM 7 2:01 EST PM EST Yovani Keller MD ECG ORDERABLES Performing Organization Address City/State/ZIP Code Phon e Number MUSE SYSTEM documented in this encounter Visit Diagnoses Diagnosis Maisonneuve fracture documented in this encounter Care Teams Hospital Medical Assistant Relationship Specialty Start Date End Date Joanne Weaver MD PCP - General 01/16/[address] [place] [phone] documented as of this encounter
--- OUTSIDE RECORDS SUMMARY | 2021-10-05 00:27 | XMS_ITS | Encounter Summary ---
:1945 Author Organization [facility] Address [place] [address] Care Team Providers Name Role Phone Joanne Weaver MD Primary Care Provider Encounter Details Date Type Department Care Team Description 03/20/2016 Hospital Encounter XRay at [facility] Yovani Keller, S/P orthopedic [facility] surgery, follow-up [place], [place] [facility] exam [id number] [place] [phone] [place] [address] Social History Tobacco Use Types [...] Comme nts XR ANKLE MIN 3 Routine 03/20/2016 3:31 PM S/P orthopedic Resul ts for this VIEWS RIGHT EST surgery, follow-up procedure are in exam the results section. documented in this encounter Results XR Ankle Min 3 views Right (Generic) (03/20/2016 3:31 PM EST) Anatomical Region Laterality Modality Ankle Right Digital Radiography Specimen (Source) Anatomical Location Collection Method / Collectio n Time Received Time / Laterality Volume Impressions 03/20/2016 3:56 PM EST Status post open repair of distal tibiofibular joint. Narrative 03/20/2016 3:56 PM EST EXAMINATION: XR ANKLE MIN 3 VIEWS RIGHT (GENERIC) CLINICAL HISTORY: check alignment and he aling TECHNIQUE: Three views right ankle COMPARISON: C-arm spot views right ankle one 03/06/2016 and three views right ankle 02/23/2016. FINDINGS: Since the prior study of 02/23/2016, a s michael transverse screw has been placed across the distal fibula and tibia. Ther e are also metallic anchors along the lateral surface of the distal fibula and medial surface of the distal tibia. The tibial/fibular articulation is normal. T he ankle joint mortise is uniform. An overlying cast obscures bone detail. Procedure Note Akira Calle MD - 03/20/2016Format ting of this note might be different from the original. EXAMINATION: XR ANKLE MIN 3 VIEWS RIGHT (GENERIC) CLINICAL HISTORY: check alignment and he aling TECHNIQUE: Three views right ankle COMPARISON: C-arm spot views right ankle one 03/06/2016 and three views right ankle 02/23/2016. FINDINGS: Since the prior study of 02/23/2016, a s michael transverse screw has been placed across the distal fibula and tibia. Ther e are also metallic anchors along the lateral surface of the distal fibula and medial surface of the distal tibia. The tibial/fibular articulation is normal. T he ankle joint mortise is uniform. An overlying cast obscures bone detail. IMPRESSION Status post open repair of distal tibiof ibular joint. Yovani Keller MD IMG DX ORDERABLES documented in this encounter Visit Diagnoses Diagnosis S/P orthopedic surgery, follow-up exam Follow-up examination, following other s urgery documented in this encounter Care Teams Dental Ceramist Relationship Specialty Start Date End Date Joanne Weaver MD PCP - General 01/16/[address] [place] [phone] documented as of this encounter
--- OUTSIDE RECORDS SUMMARY | 2021-10-05 00:27 | XMS_ITS | Clinical Summary ---
:1945 Author Organization [facility] [place] [address] Care Team Providers Name Role Phone Joanne Weaver MD Primary Care Provider Allergies Active Allergy Reactions Severity Noted Date Comments Acetaminophen CIS - Palpitat ions, high HR Codeine Phosphate CIS - palp itations, elevated HR Medications Medication Sig Dispensed Refills Start Date End Date Status aspirin 81 mg EC tablet 0 06/22/2008 Active meTOPROLOL tartrate Take 50 mg by 0 Active (LOPRESSOR) 50 mg mouth 2 times Tablet daily. Active Problems Problem Noted Date Hypertension 03/20/2016 Right Maissoneuve fracture of proximal fibula 02/23/20 16 Immunizations Name Administration Dates Next Due Influenza Vaccine, Unspecified Formulation 01/27/2016 Family History Medical History Relation Comments Diabetes Neg Hx Social History Tobacco Use Types Packs/Day Years Used Date Never Smoker Alcohol Use Standard Drinks/Week Comments No 0 (1 standard drink = 0.6 oz pure alcoho l) Sex Assigned at Date Recorded Not on file Last Filed Vital Signs Vital Sign Reading Time Taken Comments Blood Pressure 189/90 04/16/2016 2:11 PM EST Pulse 85 04/16/2016 2:11 PM EST Temperature 37 ??C (98.6 ??F) 03/06/2016 11:58 AM EST Respiratory Rate 18 03/06/2016 3:14 PM EST Oxygen Saturation 99% 03/06/2016 4:00 PM EST Inhaled Oxygen Concentration - - Weight 86.2 kg (190 lb) 04/16/2016 2:11 PM EST Height 154.9 cm (5' 1) 04/16/2016 2:11 PM EST Body Mass Index 35.9 04/16/2016 2:11 PM EST Plan of Treatment Health Maintenance Due Date Last Done Comments Covid-19 Vaccine (#1) 07/18/1950 Hepatitis C Screening 1964 Lipid Screening 1964 Tdap adult 1965 Tetanus vaccine 1965 Colonoscopy 07/18/1991 Zoster vaccine (1 of 2) 1996 Advance Directive 2001 Bone Density Scan 07/18/2011 Pneumoccocal Vaccine: 65+ (1 - PCV) 07/18/2011 Influenza (Flu) vaccine (1 of 1 - Influenza standard 10/25/2021 01/27/2016 series) Medical Devices Implanted Type Area Separator Tender Device Shelf Model / Identifier Expiration Serial / Date Lot Screw,Crtx,Stap,3.5x45mm ([id number]) - [id number] IMPLANTS Right: DO NOT USE [id number] / Implanted: Qty: 1 on 03/06/2016 by Yovani Keller MD at [facility] [employer] - / [id number] Insurance Payer Benefit Plan / Subscriber ID Effective Dates Phone Addre ss Type Group MEDICARE MEDICARE PART A [id number] 2011-Present [phone] [place] [id number] Advance Directives Latest Code Status on File Code Status Date Activated Date Inactivated Comments Full Code 03/05/2016 5:03 PM 03/06/2016 7:01 PM Does patient have capacity to make decision: Yes Full Code 02/24/2016 1:28 AM 02/24/2016 6:04 PM Does patient have capacity to make decision: Yes Care Teams Assistant Women'S Soccer Coach Relationship Specialty Start Date End Date Joanne Weaver MD PCP - General 01/16/[address] [place] [phone]
--- OUTSIDE RECORDS SUMMARY | 2021-10-05 00:27 | XMS_ITS | Encounter Summary ---
:1945 Author Organization [facility] [place] [address] Care Team Providers Name Role Phone Joanne Weaver MD Primary Care Provider Encounter Details Date Type Department Care Team Description 03/06/2016 Surgery Main Operating Room Yovani Keller MD ORIF SYNDESMOSIS, ANKLE [facility].8[facility] ORTHOPAEDIC [place], [place] [id number] [place], [place] [id number] [phone] Social History Tobacco Use Types Packs/Day Years Used Date Never Smoker Alcohol Use Standard Drinks/Week Comments No 0 (1 standard drink = 0.6 oz pure alcoho l) Sex Assigned at Date Recorded Not on file documented as of this encounter Last Filed Vital Signs Vital Sign Reading Time Taken Comments Blood Pressure 181/73 03/06/2016 3:30 PM EST Pulse 57 03/06/2016 3:14 PM EST Temperature 37 ??C (98.6 ??F) 03/06/2016 11:58 AM EST Respiratory Rate 18 03/06/2016 3:14 PM EST Oxygen Saturation 99% 03/06/2016 3:30 PM EST Inhaled Oxygen Concentration - - Weight 88.5 kg (195 lb) 03/06/2016 11:58 AM EST Height 154.9 cm (5' 1) 03/06/2016 11:58 AM EST Body Mass Index 36.84 03/06/2016 11:58 AM EST documented in this encounter Discharge Instructions Discharge InstructionsTali Cosme - 03/06/2016 4:19 PM EST 1. You [...] EST Orthopaedic Surgery Same Day Discharge Instructions [id number] Kristi Quiroz Discharge Instructions: Activity: ??? Do [...] taking them. You may also take an kxmg-fqm-uvjrrip stool softener, like Senokot, to facilitate a [...] rotator cuff repair/fracture. Call the Orthopaedic Clinic ([phone] during business hours -; after-hours or on weekends [phone] and ask for the Ortho resident on-call ) if you develop: fevers, chills, night sweats, nausea, vomitng, wound discharge, as well as numbness, tingling, increased pain, pain with active or passive extension of fingers/toes in the affected limb, or other questions or concerns. Future Appointments Date Time Provider Department Center 03/20/2016 3:30 PM Yovani Keller MD [facility] Ortho [address] [place] [address] CLIN documented in this encounter Medications at [...] the electronic medical record. Opioid PDMP 02/27/2016 MD PDMP Query Date 03/06/2016 I spoke with [...] Note ?? Patient Name: Kristi Quiroz : [id number] MR#: [id number] ?? Case Date: 03/06/2016 ?? Surgeon: Surgeon(s) and Role: * Yovani Keller MD - Primary * Fletcher Morrell MD - Resident-Drilling Field Operator ?? Preoperative diagnosis: Maisonneuve fracture right ankle [...] Implant Name Type Inv. Item Serial No. Digital Director Lot No. LRB No. Used Action KIT,REPAIR,KNOTLESS,TIGHTROPE ([id number]) - [id number] IMPLANTS KIT,REPAIR,KNOTLESS,TIGHTROPE ([id number]) [employer] - [id number] Right 1 Implanted SCREW,CRTX,STAP,3.5X45MM ([id number]) - [id number] IMPLANTS SCREW,CRTX,STAP,3.5X45MM ([id number]) [employer]THES - [id number] Right 1 Implanted DESCRIPTION OF PROCEDURE: The [...] Operative Note Patient Name: Kristi Quiroz : [id number] MR#: [id number] Case Date: 03/06/2016 Surgeon: Surgeon(s) and Role: * Yovani Keller MD - Primary * Fletcher Morrell MD - Resident-Drilling Field Operator Preoperative diagnosis: Maisonneuve fracture right ankle Postoperative [...] City/State/ZIP Code Phon e Number RAD RAD [place], [place] documented in this encounter Visit Diagnoses Not on filedocumented in this encounter Administered Medications Inactive Administered [...] mg over 3 days) patch 1 p atc 1245 (Patch Applied - Provider: Gilberto Rutherford [...] mg 1230 (Given - Provider: Gilberto Rutherford, CHRIS) 1 mg, Intravenous, EVERY 5 MIN PRN, [...] mcg/mL) syringe 1230 (Due) 1 dose, Starting Fri03/06/16 at 1222, Un til Carmelita 03/07/16 at 0029, GILBERTO RUTHERFORD: cabinet override documented in this encounter Care Teams Light Oil Operator Relationship Specialty Start Date End Date Joanne Weaver MD PCP - General 01/16/[address] [place] [address] documented as of this encounter
--- OUTSIDE RECORDS SUMMARY | 2021-10-05 00:27 | XMS_ITS | Encounter Summary ---
:1945 Author Organization [facility] [place] [address] Care Team Providers Name Role Phone Joanne Weaver MD Primary Care Provider Encounter Details Date Type Department Care Team Description 02/27/2016 Laboratory Appointment Lab at [facility] [place] [address] Social History Tobacco Use Types Packs/Day Years Used Date Never Smoker Alcohol Use Standard Drinks/Week Comments No 0 (1 standard drink = 0.6 oz pure alcoho l) Sex Assigned at Date Recorded Not on file documented as of this encounter Plan of Treatment Not on filedocumented as of this encounter Procedures Procedure Name Priority Date/Time Associated Diagnosis Comme nts HEMOGRAM Routine 02/27/2016 1:45 PM Maisonneuve fracture R esults for this EST procedure are i n the results section. DIFFERENTIAL, Routine 02/27/2016 1:45 PM Maisonneuve fracture Results for this AUTOMATED EST procedure are i n the results section. CBC (WITH DIFF) Routine 02/27/2016 1:45 PM Maisonneuve fractur e EST BASIC METABOLIC Routine 02/27/2016 1:45 PM Maisonneuve fractur e Results for this PANEL (NON-FASTING) EST procedur e are in the results section. documented in this encounter Results Differential, Automated (02/27/2016 1:45 PM EST) athologist Signature Neutrophils % 59.8 % [facility] Neutr Abs (ANC) 5.75 1.70 - [facility] 6.10 [facility] x10(3)/[facility] LABORATORY Lymphocytes % 30.2 % [facility] Lymphocytes Abs 2.9 0.9 - 3.2 [facility] x10(3)/[facility] LABORATORY Monocytes % 8.0 % [facility] Monocyte Abs 0.8 0.3 - 0.9 [facility] x10(3)/[facility] LABORATORY Eosinophils % 0.9 % [facility] Eosinophils Abs 0.1 0.0 - 0.4 [facility] x10(3)/[facility] LABORATORY Basophils % 0.8 % [facility] Basophils Abs 0.1 0.0 - 0.1 [facility] x10(3)/[facility] LABORATORY Immature Gran % 0.30 % [facility] Comment: Immature granulocytes(IG's)percentage an d absolute count will include metamyelocytes, myelocytes, and promyelo cytes. Blood smears from CBCs yielding IG's will be scanned manually for concor dance. If this scan disagrees with the automated IG or if promyelocytes are not ed, a manual differential will be performed. Sadaf Gran Abs 0.03 0.00 - 0.04 x10(3)/[facility] MAR Y [facility] Specimen Anatomical Collection Method Collection Time Receive d Time (Source) Location / / Volume Laterality Blood specimen 02/27/2016 1:45 PM 017 1:56 (specimen) EST PM EST Resulting Agency Comment Spec In Lab Yovani Keller MD HEMATOLOGY ORDERABLES Performing Organization Address City/State/[place] [address] (ABNORMAL) Hemogram (02/27/2016 1:45 PM EST) athologist Signature WBC 9.6 (H) 4.0 - 9.5 [facility] x10(3)/[facility] LABORATORY RBC 5.21 4.00 - [facility] 5.21 [facility] x10(6)/[facility] LABORATORY Hemoglobin 14.4 11.7 - [facility] 15.5 gm/dL [facility] Hematocrit 43.8 35.7 - [place] 45.8 % [facility] MCV 84.1 82.6 - [place] 94.4 [facility] LABORATORY MCH 27.6 27.1 - [place] 32.[address] [facility] MCHC 32.9 31.7 - [place] 35.0 gm/dL [facility] Platelets 223 145 - 357 [facility] x10(3)/[facility] LABORATORY RDWSD 39.4 37.0 - [place] 46.0 [facility] LABORATORY RDWCV 12.9 11.5 - [place] 14.1 % [facility]ORY MPV 9.1 7.6 - 12.9 [facility] LABORATORY nRBC % Auto 0.0 % [facility] nRBC Abs Auto 0.000 0.000 - [place] 0.000 [facility] x10(3)/[facility] LABORATORY Specimen Anatomical Collection Method Collection Time Receive d Time (Source) Location / / Volume Laterality Blood specimen 02/27/2016 1:45 PM 017 1:56 (specimen) EST PM EST Resulting Agency Comment Spec In Lab Yovani Keller MD HEMATOLOGY ORDERABLES Performing Organization Address City/State/[place] [address] (ABNORMAL) Basic Metabolic Panel (non-fasting) (02/27/2016 1:45 PM EST) athologist Signature Glucose Lvl 102 65 - 199 [facility] mg[facility]dL [facility] Comment: Diabetes: >=200 mg/dL plus symp toms BUN 19 (H) 8 - 18 mg/dL [facility] Creatinine 0.84 0.70 - 1.20 mg/dL [facility] Comment: Please note that the pediatric reference intervals supplied above were not validated at [facility]. Results from pediatri c patients should be interpreted in conjunction to the patient's age, height and muscle mass. Sodium 139 135 - 145 mmol/L [facility] Potassium 4.6 3.5 - 5.0 mmol/L [facility] Comment: Please note: ??Patients with WBC >100,00 0 may have falsely elevated Potassium levels. ??For accurate Potassium quantif ication in these patients send serum separator tube (gold top) for subsequent determinations. ??Contact the Clinical Chemistry Laboratory if there are any qu estions. Chloride 101 98 - 107 mmol/L [facility] CO2 26 22 - 31 mmol/L [facility] Anion Gap 12 5 - 15 mmol/L [facility] Calcium 9.0 8.5 - 10.5 mg/dL [facility] Estimated GFR >60 >=60 [facility] Comment: This estimated GFR (eGFR) value was calc ulated using the MDRD equation which has been validated on patients between t he ages of 18 and 70. The MDRD should not be used to assess kidney function in patients < 18 years of age or in patients with extremes of body mass, or in patients with acute kidney failure. This value should be multiplied by 1.2 f or patients. For further information please copy and past e the following links into your internet browser. http://PartyLine/DHnkdep http://PartyLine/DHMCnkf Specimen Anatomical Collection Method Collection Time Receive d Time (Source) Location / / Volume Laterality Blood specimen 02/27/2016 1:45 PM 017 1:56 (specimen) EST PM EST Resulting Agency Comment Spec In Lab Yovani Keller MD CHEMISTRY ORDERABLES Performing Organization Address City/State/[place] [address] documented in this encounter Visit Diagnoses Diagnosis Maisonneuve fracture documented in this encounter Care Teams Screening Nurse Relationship Specialty Start Date End Date Joanne Weaver MD PCP - General 01/16/10 [address] [place], [place] [phone] documented as of this encounter
--- OUTSIDE RECORDS SUMMARY | 2021-10-05 00:27 | XMS_ITS | Encounter Summary ---
:1945 Author Organization [place] [address] Care Team Providers Name Role Phone Joanne Weaver MD Primary Care Provider Reason for Visit Reason Onset Date Comments Appointment 02/27/2016 Surgical Encounter Details Date Type Department Care Team Description 02/27/2016 Telephone Orthopaedics at [facility] Yovani Keller MD Appointment (Surgical) [place] [address] ORTHOPAEDIC SURGERY [place] [address] Social History Tobacco Use Types Packs/Day Years Used Date Never Smoker Alcohol Use Standard Drinks/Week Comments No 0 (1 standard drink = 0.6 oz pure alcoho l) Sex Assigned at Date Recorded Not on file documented as of this encounter Miscellaneous Notes Telephone Encounter - Ninfa Cardona - 02/27/2016 9:44 AM EST Patient is schedule for today per perla's note Telephone Encounter - Bernice Dillon RMA - 02/27/2016 8:37 AM EST I called and LMOM. I asked that Kristi please call the office today as we would like to shcd an appt with Dr. Keller either today or tomorrow as a discussion needs to take place. I asked that she call [phone] Opt 1. Per Nicolasa-TASNEEM Wood Fx - DOI 02/23/16. documented in this encounter Plan of Treatment Not on filedocumented as of this encounter Visit Diagnoses Not on filedocumented in this encounter Care Teams Fish Cutter Relationship Specialty Start Date End Date Joanne Weaver MD PCP - General 01/16/[address] [place] [address] documented as of this encounter
--- OUTSIDE RECORDS SUMMARY | 2021-10-05 00:27 | XMS_ITS | Encounter Summary ---
:1945 Author Organization [facility] Address [address] [facility] [address] [place] [address] Care Team Providers Name Role Phone Joanne Weaver MD Primary Care Provider Encounter Details Date Type Department Care Team Description 03/20/2016 Orders Only Orthopaedics at [facility] Yovani Keller MD S/P orthopedic [facility] noel, follow-up [place] [address] ORTHOPAEDIC [phone] SURGERY [place] [address] Social History Tobacco Use Types Packs/Day Years [...] cast obscures bone detail. Procedure Note Akira Calel MD - 03/20/2016Format ting of this note [...] exam Follow-up examination, following other s urgery S/P orthopedic surgery, follow-up exam Follow-up examination, following other s urgery documented in this encounter Care Teams Manager Enterprise Relationship Specialty Start Date End Date Joanne Weaver MD PCP - General 01/16/[address] [place] [address] documented as of this encounter
--- OUTSIDE RECORDS SUMMARY | 2021-10-05 00:27 | XMS_ITS | Encounter Summary ---
:1945 Author Organization [facility] [place] [address] Care Team Providers Name Role Phone Joanne Weaver MD Primary Care Provider Encounter Details Date Type Department Care Team Description 03/07/2016 Telephone Orthopaedics at [facility] Alayna Bojorquez, [place] [address] Social History Tobacco Use Types Packs/Day Years Used Date Never Smoker Alcohol Use Standard Drinks/Week Comments No 0 (1 standard drink = 0.6 oz pure alcoho l) Sex Assigned at Date Recorded Not on file documented as of this encounter Miscellaneous Notes Telephone Encounter - Alayna Bojorquez RN - 03/07/2016 8:25 AM EST Patient calls indicating she had surgery yesterday and has a stabbing pain in her foot like the screw is in the bone Operative Note ? Patient Name: Kristi Quiroz : [id number] MR#: [id number] ? Case Date: 03/06/2016 ? Surgeon: Surgeon(s) and Role: * Yovani Keller MD - Primary * Fletcher Morrell MD - Resident-Machine Splitter ? Preoperative diagnosis: Maisonneuve fracture right ankle ? Postoperative diagnosis: Same ? Procedure(s): ORIF SYNDESMOSIS, ANKLE (WRVU 8.8) No. Vocational Rehab Consultant Lot No. LRB No. Used Action KIT,REPAIR,KNOTLESS,TIGHTROPE ([id number]) - [id number] IMPLANTS KIT,REPAIR,KNOTLESS,TIGHTROPE ([id number]) ?? [employer] - [id number] Right 1 Implanted SCREW,CRTX,STAP,3.5X45MM ([id number]) - [id number] IMPLANTS SCREW,CRTX,STAP,3.5X45MM ([id number]) ? [employer] - [id number] ? Right 1 Implanted ? Discussed with team. Patient aware that she does a screw in the bone as part of repair. We discussed timing of her pain medication She indicates she cannot take tylenol and can only take a small amount of oxycodone as she gets sick to her stomach. She is taking her Zofran and aware to have something in her stomach when taking these. She will take 1tab of oxycodone 5mg every 4 hours on a regular basis for the next day or two to determine its effectiveness. She can then decrease as able. She knows to update us as need be. documented in this encounter Plan of Treatment Not on filedocumented as of this encounter Visit Diagnoses Not on filedocumented in this encounter Care Teams Therapy Teacher Relationship Specialty Start Date End Date Joanne Weaver MD PCP - General 01/16/[address] [place] [id number] documented as of this encounter
--- OUTSIDE RECORDS SUMMARY | 2021-10-05 00:27 | XMS_ITS | Encounter Summary ---
:1945 [place] [address] Care Team Providers Name Role Phone Joanne Weaver MD Primary Care Provider Encounter Details Date Type Department Care Team Description 03/06/2016 Anesthesia Event Main Operating Room Patrick Lake MD [facility] [place] [address] [facility] PartidaDoris L, WEBSITE PROGRAMMER [address] [place] [address] [place] [phone] Anesthesia Record Procedure Summary Procedure Name Responsible Anesthesia Start Anesthesia Stop Time Anesthesiologist Time ORIF SYNDESMOSISPetrona Aaron J, MD 03/06/16 1359 03/06/16 1516 ANKLE (WRVU 8.8) (Right Ankle) Events Date Time Event Comment 03/06/2016 1359 Start 1359 Quick Note Pt urinated imme diately prior to heading back to OR 1402 AN Verify 1402 An Start Data 1406 An Induction 1407 An Intubation 1408 Anesthesia Ready 1432 An Tourn Inflated 250 mmHg 1434 Procedure Start 1452 1453 An Tourn Deflated 1508 Extubation/LMA Out 1509 an stop data 1516 Stop Name Total Propofol 200 mg Ondansetron 4 mg ceFAZolin (ANCEF) 2g in dextrose 5% 50 mL 2 g Propofol INF 610.65 mg Lactated Ringers 600 mL Agents Name O2 Air N2O Blood No blood administrations on file. Lines, Drains, and Airways Type Details Placement Removal Incision 03/06/16; 1429; ankle 03/06/16 1429 by Bonifacio Palacios RN PIV 03/06/16; 1154; cephalic 03/06/16 1154 by [id number] by vein (lateral side of Doris Clements RN Haw Celeste storey RN arm), left; [id number] catheter system; 20 gauge, 1 in length; Ava Spaulding RN ; distraction, intradermal injection; no longer indicated, removed per policy/procedure, site care per policy/procedure, catheter/device intact; 03/06/16; 165 Supraglottic Mask Ventilation: Easy 03/06/16 1407 by , 03/06/16 1508 by (1); LMA Type: iGel; LMA JULIAN Garcia Rachel A, CRNA Size: 4; Inserted by: Angela Weber documented in this encounter Social History Tobacco Use Types Packs/Day Years Used Date Never Smoker Alcohol Use Standard Drinks/Week Comments No 0 (1 standard drink = 0.6 oz pure alcoho l) Sex Assigned at Date Recorded Not on file documented as of this encounter OR Notes Anesthesia Postprocedure Evaluation - Patrick Santiago MD - 03/06/2016 3:38 PM EST [facility] [place] Department of Anesthesiology Post-procedure Note Patient: Kristi Quiroz Procedure Summary Date Anesthesia Start Anesthesia Stop Room / Location 03/06/16 1359 1516 [facility] OR [facility] MAIN OR Procedure Diagnosis Surgeon Responsible Provider ORIF SYNDESMOSIS, ANKLE (WRVU 8.8) (Right Ankle); MODIFIER SMALL FRAGMENT SYNTHES (N/A ) (Maisonneuve fracture right ankle) Yovani Keller MD Mancuso, Aaron J, MD All Anesthesia Providers: Anesthesiologist: Patrick Santiago MD DIRECTOR OF EVENT SALES: Angela Weber CRNA Last (1hr) Vitals: BP 181/73 (03/06/16 1530) Temp Pulse 57 (03/06/16 1514) Resp 18 (03/06/16 1514) SpO2 99 % (03/06/16 1530) Patient Location: PACU/[facility] Level of Consciousness: Awake and Alert Pain Management: Satisfactory Analgesia PONV: None Cardiovascular Status: At Baseline and Hemodynamically Stable Respiratory Status: At Baseline and Room Air Postoperative Fluid Status: Intravascular EUvolemia Possible Anesthetic Complications: NONE apparent at time of evaluation Final Primary Anesthesia Type: General (The anesthetic type performed was the same as planned.) Comments: PATRICK SANTIAGO MD Anesthesia Procedure Notes - Mitchel Campbell - 03/06/2016 12:51 PM ESTAssociated Order(s): ANESTHESIA BLOCK Procedure: Anesthesia Block Block: Post-op Pain Control, adductor canal block, sciatic/ popliteal nerve block Start time: 03/06/2016 12:31 PM End time: 03/06/2016 12:44 PM Patient Location: Block Room Indication/Prep Position: supine Prep: chlorhexidine, patient draped, mask, cap, sterile gloves, hand hygeine Laterality: right Skin Medication lidocaine 1% 7 ml Injection Information Ultrasound Guidance: live and in-plane Ultrasound guidance was used to identify the targeted neuronal structure. Ultrasound was also used to identify needle positon and to identify surrounding tissue (bone, muscle, and blood vessels) to prevent inadvertent intraneural or intravascular needle placement and injection. The spread of local anesthetic was confirmed with live ultrasound imaging. Injection technique:single-shot Needle Length: 10 cm Gauge: 21 Needle Type: [id number] Medication injection made incrementally with aspirations. Nerve infiltration solution through a needle Ropivicaine 0.5% 30 mL Additional Notes No complications or paresthesias, tolerated procedure well. Intermittent aspiration negative. Resident: MITCEHL CAMPBELL Second Resident: Fellow: Attending Physician: ALONA BAKER ~~~~~~~~~~~~~~~~~~~~~~~~~~~~~~~~~~~~~~~~~~~~~~~~~~~~~~~~~~~~ Anesthesia Preprocedure Evaluation - Mitchel Campbell - 03/05/2016 3:40 PM EST Pre-Anesthesia Evaluation for: Kristi Quiroz a 70 y.o. female. Procedure(s): ORIF SYNDESMOSIS, ANKLE (WRVU 8.8) MODIFIER SMALL FRAGMENT SYNTHES Patient Active Problem List Diagnosis ??? Right Maissoneuve fracture of proximal fibula Past Medical History Diagnosis Date ??? Arthritis No past surgical history on file. Social History Substance Use Topics ??? Smoking status: Never Smoker ??? Smokeless tobacco: Not on file ??? Alcohol use No History Drug Use No Allergies Allergen Reactions ??? Acetaminophen CIS - Palpitations, high HR ??? Codeine Phosphate CIS - palpitations, elevated HR Medications: MAR and/or home medications have been reviewed. Physical Exam: There were no vitals filed for this visit. There is no height or weight on file to calculate BMI. Airway Assessment: Mallampati: II TM distance: >3 FB Neck ROM: full Cardiovascular Assessment: Pulmonary Assessment: Dental Assessment: - normal exam Misc Assessment: IV access: Peripheral line Anesthesia Plan: ASA 2 general and regional, with a(n) intravenous induction 70yo, 88.5kg female with PMH significant for HTN, R tibia fracture, to OR for ORIF RIGHT ankle with Dr. Keller. Anesthesia Hx: PONV following colonoscopy, PONV with opioids (can tolerate 25mg tramadol with ondansetron) Non-smoker, Denies: CAD, SOB, CP, URI symptoms, uncontrolled GERD Good exercise tolerance PMH negative for DM, reactive airway disease, liver/kidney disease, excessive bleeding No numbness or paresthesias in operative extremity NPO status: appropriately NPO Labs reviewed Allergies reviewed Plan: Pop saph nerve block Scop patch TIVA with GA LMA Standard ASA monitors Additional IV access as needed Patient is a Jehovas Witness and declines all blood products and fractionated blood products, as well as albumin, and also declines cell saver. Denton Rockwell MD Anesthesiology, CA-1 Pager #[phone] Addended by Mitchel Campbell DO Region - Other Informed Consent: Anesthetic plan and risks discussed with patient. Use of blood products discussed with patient who did not consent to blood products. Special considerations: Yarsani. PAT Staff Note documented in this encounter Miscellaneous Notes Addendum Note - Alona Baker MD - 03/15/2016 3:08 PM EST Addendum created 03/15/16 1508 by Alona Baker MD Anesthesia Attestations filed, Cosign clinical note documented in this encounter Plan of Treatment Not on filedocumented as of this encounter Procedures Procedure Name Priority Date/Time Associated Diagnosis Comme nts ANESTHESIA BLOCK Routine 03/15/2016 3:07 PM Resul ts for this EST procedure are i n the results section. documented in this encounter Results Anesthesia Block (03/15/2016 3:07 PM EST) Narrative Alona Baker MD - 03/15/2016 3:07 PM EST Mitchel Campbell, DO ? 03/06/2016 12:52 PM Procedure: ??Anesthesia Block Block: Post-op Pain Control, adductor ca nal block, sciatic/ popliteal nerve block Start time: 03/06/2016 12:31 PM End time: 03/06/2016 12:44 PM ?? Patient Location: Block Room ?? Indication/Prep Position: supine Prep: chlorhexidine, patient draped, mas k, cap, sterile gloves, hand hygeine Laterality: right Skin Medication lidocaine 1% 7 ml Injection Information Ultrasound Guidance: live and in-plane ?Ultrasound guidance was used to id entify the targeted neuronal structure. ??Ultrasound was also used to identify needle positon and to identify surrounding tissue (bone, muscl e, and blood vessels) to prevent inadvertent intraneural or intravascular needle placement and injection. ?? The spread of local anesthetic was confi rmed with live ultrasound imaging. Injection technique:single-shot Needle Length: 10 cm Gauge: 21 Needle Type: [id number] Medication injection made incrementally with aspirations. Nerve infiltration solution through a ne edle Ropivicaine 0.5% 30 mL Additional Notes No complications or paresthesias, tolera sarah procedure well. Intermittent aspiration negative. Resident: ? FERNANDO, ADA M R Second Resident: ? Fellow: ? Attending Physician: ??SAMUEL, ALONA Rubio ?? ~~~~~~~~~~~~~~~~~~~~~~~~~~~~~~~~~~~~~~~~ ~~~~~~~~~~~~~~~~~~~~ Alona Baker MD HEALTH SCIENCE SPECIALIST [facility] documented in this encounter Visit Diagnoses Not on filedocumented in this encounter Administered Medications Inactive Administered Medications - up to 3 most recent administrations Medication Order MAR Action Action Date Dose Rate Site ceFAZolin (ANCEF) 2g in dextrose 5% Given 03/06/2016 2:15 PM EST 2 g 50 mL 2 g, Intravenous, EVERY 3 HOURS, 1 dose, First dose on Fri03/06/16 at 1200, Administer over 30 Minutes, Redose after 3 hours., Intra-Operative (Intra-Procedure), Indication for (Active or Suspected): Prophylaxis lactated ringers infusion New Bag 03/06/2016 1:59 PM EST CONTINUOUS PRN, Starting on Fri03/06/16 at 1359, Until Fri03/06/16 at 1537, Anesthesia Intra-op ondansetron (ZOFRAN) injection Given 03/06/2016 2:25 PM EST 4 mg PRN, Starting on Fri03/06/16 at 1425, Until Fri03/06/16 at 1537, Nausea, Anesthesia Intra-op, Routine propofol (DIPRIVAN) 10 mg/mL bolus injection Given 7 2:12 PM EST 50 mg (Anesthesia) PRN, Starting on Fri03/06/16 at 1406, Until Fri03/06/16 at 1537, Anesthesia Intra-op Given 03/06/2016 2:06 PM EST 150 mg propofol (DIPRIVAN) Rate/Dose 03/06/2016 2:50 100 mcg/kg/min 53.1 mL /hr infusion Change PM EST CONTINUOUS PRN, Starting on Fri03/06/16 at 1407, Until Fri03/06/16 at 1537, Anesthesia Intra-op, Routine Rate/Dose Change 03/06/2016 2:12 PM EST 150 mcg/kg/min 79.7 mL/hr New Bag 03/06/2016 2:07 PM EST 100 mcg/kg/min 53.1 mL/hr documented in this encounter Care Teams Special Education Math Teacher Relationship Specialty Start Date End Date Joanne Weaver MD PCP - General 01/16/[address] [place] [id number] documented as of this encounter
--- OUTSIDE RECORDS SUMMARY | 2021-10-05 00:28 | XMS_ITS | Encounter Summary ---
:1945 [place] [address] Care Team Providers Name Role Phone Joanne Weaver MD Primary Care Provider Reason for Visit Reason Comments Fall Auth/Cert Specialty Diagnoses / Procedures Referred By Contact Refer red To Contact Diagnoses Ankle fracture Ankle fracture, right, closed, initial encounter Closed fracture of proximal end of right fibula, unspecified fracture morphology, initial encounter Referral ID Status Reason Start Date Expiration Date Visits Requ ested Visits Authorized [id number] 1 1 Encounter Details Date Type Department Care Team Description 02/23/2016 - Hospital Encounter 3 Oswaldo Gibbs, Closed fracture of proximal end of right fibula, unspecified fracture morphology, initial encounter; 02/24/2016 Oumar Roman MD Ankle fracture, right, closed, initial e [facility] [address] [facility] OR[facility] [place], [place] SURGERY [address] [place], [place] [phone] [facility] Social History Tobacco Use Types Packs/Day Years Used Date Never Smoker Sex Assigned at Date Recorded Not on file documented as of this encounter Last Filed Vital Signs Vital Sign Reading Time Taken Comments Blood Pressure 166/86 02/24/2016 12:11 PM EST Pulse 66 02/24/2016 12:00 AM EST Temperature 36.6 ??C (97.9 ??F) 02/24/2016 12:11 PM EST Respiratory Rate 16 02/24/2016 8:47 AM EST Oxygen Saturation 96% 02/24/2016 12:11 PM EST Inhaled Oxygen Concentration - - Weight 103.4 kg (228 lb) 02/23/2016 9:42 PM EST Height 180.3 cm (5' 11) 02/23/2016 9:42 PM EST Body Mass Index 31.8 02/23/2016 9:42 PM EST documented in this encounter Discharge Summaries Tayler Winn MD - 02/24/2016 3:00 PM EST Discharge Summary Patient Name: Kristi Quiroz Patient Age: 70 y.o. Language: Japanese Race: White Ethnicity: Not nor Admit date: 02/23/2016 Discharge date and time: 02/24/2016 Attending Physician: Oswaldo Rolon MD Discharge Physician: Oswaldo Rolon MD Follow-up Recommendations for Providers: See discharge instructions for additional details. No future appointments. Inpatient Provider Contact Information: Oswaldo Rolon MD Orthopedics: [phone] After hours and weekends, call [facility], , and have the Orthopedic resident paged. Discharge Diagnoses (Hospital Problems) and Secondary Diagnoses (Chronic Problems): Active Hospital Problems Diagnosis ??? Right ankle fracture Resolved Hospital Problems Diagnosis Date Resolved No resolved problems to display. There are no active non-hospital problems to display for this patient. Operations/Major Procedures: None History of Present Illness: Kristi Quiroz is a 70 y.o. female who slipped in the ice and suffered a rotational injury to her right leg. Unable to bear weight. Denies head strike, LOC or pain elsewhere. X-rays show proximal fibula spiral fracture. On the gravity stress view there is widening of the medial joint space at the ankle relative to the superior joint space. Hospital Course: The patient was splinted and made NWB for RLE. She will avoid NSAIDs and follow up next week to discuss operative fixation. She was admitted to the Ortho Service because she was unable to mobilize safely. She was seen by PT and OT on HD1, and was deemed safe to discharge home with walker. She has a ramp at her house and is able to avoid stairs. She will receive VNA services at home for PT. She was tolerating PO intake, urinating without difficulty, and pain was well controlled. She was deemed appropriate for DC home on HD1. Vital Signs at Discharge: Weight: Wt Readings from Last 1 Encounters: 02/23/16 (!) 103.4 kg (228 lb) Height: Ht Readings from Last 1 Encounters: 02/23/16 180.3 cm (5' 11) HC: HC Readings from Last 1 Encounters: No data found for HC BMI: Body mass index is 31.8 kg/(m^2). Last value Range last 24 hrs Temperature Temp: 36.6 ??C (97.9 ??F) Temp: [36.4 ??C (97.5 ??F)-36.7 ??C (98.1 ??F)] Heart Rate Heart Rate: 66 Heart Rate: [60-66] Blood Pressure BP: 166/86 BP: (151-184)/(58-93) Respiratory Rate Resp: 16 Resp: [16-18] SpO2 SpO2: 96 % SpO2: [92 %-100 %] Art BP BP (Arterial Line): -- Functional and Cognitive Status: Patient mobilizing with walker / wheelchair, cognitively intact at baseline mental status at time of discharge. Important Studies and Lab Data: Labs:Last wbc, hgb, hct plt No results for input(s): WBC, HGB, HCT in the last 72 hours. Invalid input(s): PLT Last 3 Lytes No results for input(s): NA, K, CL, CO2, BUN, CREATININE in the last 7068 hours. Studies: XR right ankle: On the gravity stress view there is widening of the medial joint space at the ankle relative to thesuperior joint Discharge Conditions/Prognosis: Stable, awake, and alert. Mobilizing as noted above, pain controlledon oral medications. Discharge to: home with VNA Updated Allergies/ADRs: Allergies Allergen Reactions ??? Acetaminophen CIS - Palpitations, high HR ??? Codeine Phosphate CIS - palpitations, elevated HR Immunizations Given this Hospitalization: There is no immunization history on file for this patient. Discharge Medications: Your Medications Notice Some of the medications listed here do not show instructions, such as how often to take the medication. Ask your doctor or nurse how to use these medications. Specifically ask about these and similar medications: - atenolol (TENORMIN) 50 mg tablet - aspirin 81 mg EC tablet - cephALEXin (KEFLEX) 500 mg capsule - hydrochlorothiazide (HYDRODIURIL) 50 mg tablet - potassium chloride (K-DUR) 10 mEq tablet - Omeprazole 20 mg TbEC New Medications Dose Details ondansetron 8 mg Tbdl Commonly known as: ZOFRAN-ODT Take 1 tablet by mouth every 8 hours as needed for Nausea. 8 mg Quantity: 20 tablet Refills: 1 traMADol 50 mg Tab Commonly known as: ULTRAM Take 1-2 tablets by mouth every 4 hours as needed for Pain. Use the minimum amount of this medication. Take as infrequently as possible. Ween off of this medication as rapidly as possible. 50-100 mg Quantity: 30 tablet Refills: 0 Continued medications, unchanged Dose Details aspirin 81 mg Tbec ?nk?wn!?? Refills: 0 atenolol 50 mg Tab Commonly known as: TENORMIN ?nk?wn!?? Refills: 0 hydroCHLOROthiazide 50 mg Tab Commonly known as: HYDRODIURIL ?nk?wn!?? Refills: 0 KEFLEX 500 mg Cap ?nk?wn!?? Generic drug: cephalexin Refills: 0 omeprazole 20 mg Tbec ?nk?wn!?? Refills: 0 potassium chloride 10 mEq Tbsr Commonly known as: K-DUR/KLOR-CON ?nk?wn!?? Refills: 0 STOPPED Medications naproxen 500 mg Tab Commonly known as: NAPROSYN Smoking Status at Discharge: History Smoking Status ??? Never Smoker Smokeless Tobacco ??? Not on file Instructions Given to Patient at Discharge: Patient Instructions Orthopaedic Home Care Instructions Care of Your Broken Bone Below are general guidelines to follow after treatment for a fracture. We will give you more specific instructions depending on the type and location of your injury. You will need to be aware that these guidelines are only general, each person???s recovery may vary. If you have any questions after reading this sheet, please call us. 1. INJURY: Right ankle fracture Activity Keep your cast/splint clean and dry. For the first 72 hours, keep your injured extremity raised as much as possible. You may sit in a chair or in bed with your injured extremity raised above the level of the heart. Use blankets and/or pillows to help. You may leave the bed or chair to use the bathroom or to eat. DO NOT allow the injured extremity to dangle or excessive swelling and pain will develop. Use ice over the injured extremity for about 72 hours - at least 3-4 times per day for 20 minutes heiid time. You can use a simple plastic bag with ice (double the bag!) and place the bag over the injured extremity. Ice is effective even through the casts. Days 4-7, you may increase activities but only do what is absolutely necessary! You will have less pain and swelling if you CONTINUE TO RAISE YOUR INJURED EXTREMITY. Too much activity will result in discomfort and swelling, and may slow healing. You will be much happier later if you follow activity res trictions. Less is better for the first week! Weight-bearing status: non-weight bearing 2. Prescriptions ??? You were given a prescription for tramadol: take one - two tablets every 4-6 hours as needed. ??? They can be constipating, so I recommend also taking a stool softener such as Colace 100mg 2x/day. Stop the stool softener if you develop diarrhea. ??? You should not drive while taking tramadol. ??? You may also take Acetaminophen (Tylenol) for pain but do not take more than 3000mg per day. ??? Avoid ibuprofen type medications (aleve, advil, motrin, naprosyn, celebrex). These medications have been suggested to slow bone healing. Please take 1 full strength 325mg aspirin daily to help prevent blood clots You should find yourself needing less and less pain medication after the first few days. Take your pain medicine as directed. Take any of your other usual medicines as directed. 3. Please contact us if: ??? You have excessive swelling. Typically you have not kept the injured extremity raised high enough. If the swelling does not go down after raising the injured extremity above the heart for 3 to 4 hours, call the clinic or come to the emergency department. ??? You feel excessive pain or your injured extremity becomes numb. Again, this usually happens whenthe injured extremity is not raised high enough. If the pain does not lessen after 3 to 4 hours of strict elevation, call the clinic. ??? Your cast/splint is too tight. Follow the instructions about raising the extremity. If you have any questions or concerns, please call the following: Orthopaedic Clinic Friday thru Friday 8am - 5pm (see below) Orthopaedic Physician macaroni press operator --After 5pm and Weekends [phone] We are interested in your prompt and healthy recovery. Please follow the above instructions. Please call the office (at number below) to verify your post fracture appointment, typically the following day or Friday if you injure yourself over the weekend. Your care today was provided by Carlos Alcantar MD Follow up be arranged to discuss surgery General orthopedic clinic (trauma/sports/pediatrics) [phone] General Instructions None Future Appointments and Orders Future Orders Complete By Expires Referral to Home Health - at DISCHARGE [[id number] CPT(R)] As directed Process Instructions: Scheduling Instructions: DOCUMENTATION FOR VNA SERVICES (INCLUDING THOSE PATIENTS WITH MEDICARE COVERAGE REQUIRING HOME VNA SERVICES AND/OR HOSPICE SERVICES) PATIENT'S LOCATION: Kristi Quiroz Patient being discharged to: Home of Abbey [place], [place] [phone] (sister's home) Physical Address: [address] [place] [phone] (home) Delivery Clerk's Name: sister Iniguez In discussion with the attending physician, it is certified that this patient is under their care and that they, or a Nurse Practitioner,Clinical Nurse specialist or Physician Land Acquisition Analyst who is working directly with them, had a face to face encounter that meets the physician face to face encounter requirements with this patient on 02/24/2016 The encounter with the patient was in whole, or in part, for the following medical condition, which is the primary reason for home health care services: Right ankle fracture. In discussion with the provider, it is certified that, based on their findings, the following services are medically necessary for home health services. To provide the following care/treatments with the clinical findings supporting the need for servicesas follows: HOME CARE ORDERS: PT ORDERS: Continue rehab for endurance, gait stability and strength with mobility and transfers. Home safety evaluation. Home exercise program if appropriate. OT: assess and continue rehab for managing ADL's. HOME HEALTH CARE AGENCY: [facility] PHONE:[phone] FAX: [phone] Start of care: 24 hours following d/c FOR MEDICARE ONLY: (please delete this section if not Medicare) In discussion with the attending physician, it is certified that the clinical findings support that this patient is homebound because absences from home require considerable and taxing effort due to: NWB RLE- alterations in mobility- difficulty with balance. Please note that any additional orders needs or changes will need to be obtained from this patient'sPCP: Joanne Weaver MD [facility] [address] / [facility] [address] All [facility] agencies which cover the area of patient's residence have been reviewed, either verbally or in writing, and patient/family have chosen the home health care agency noted Questions: Agency name and contact information: [facility] Patient location post discharge: home What services are requested: Physical Therapy Occupational Therapy Start date: 02/25/2016 Responsible MD post discharge contact info: PCP and discharging team Primary Care Provider: Joanne Weaver MD [phone] Discharge References/Attachments ANKLE FRACTURE (TOGOLESE) documented in this encounter Discharge Instructions Patient InstructionsPriorCarlos nicolas MD - 02/23/2016 11:15 PM EST Orthopaedic Home Care Instructions Care of Your Broken Bone Below are general guidelines to follow after treatment for a fracture. We will give you more specific instructions depending on the type and location of your injury. You will need to be aware that these guidelines are only general, each person???s recovery may vary. If you have any questions after reading this sheet, please call us. 1. INJURY: Right ankle fracture Activity Keep your cast/splint clean and dry. For the first 72 hours, keep your injured extremity raised as much as possible. You may sit in a chair or in bed with your injured extremity raised above the level of the heart. Use blankets and/or pillows to help. You may leave the bed or chair to use the bathroom or to eat. DO NOT allow the injured extremity to dangle or excessive swelling and pain will develop. Use ice over the injured extremity for about 72 hours - at least 3-4 times per day for 20 minutes heidi time. You can use a simple plastic bag with ice (double the bag!) and place the bag over the injured extremity. Ice is effective even through the casts. Days 4-7, you may increase activities but only do what is absolutely necessary! You will have less pain and swelling if you CONTINUE TO RAISE YOUR INJURED EXTREMITY. Too much activity will result in discomfort and swelling, and may slow healing. You will be much happier later if you follow activity res trictions. Less is better for the first week! Weight-bearing status: non-weight bearing 2. Prescriptions ??? You were given a prescription for tramadol: take one - two tablets every 4-6 hours as needed. ??? They can be constipating, so I recommend also taking a stool softener such as Colace 100mg 2x/day. Stop the stool softener if you develop diarrhea. ??? You should not drive while taking tramadol. ??? You may also take Acetaminophen (Tylenol) for pain but do not take more than 3000mg per day. ??? Avoid ibuprofen type medications (aleve, advil, motrin, naprosyn, celebrex). These medications have been suggested to slow bone healing. Please take 1 full strength 325mg aspirin daily to help prevent blood clots You should find yourself needing less and less pain medication after the first few days. Take your pain medicine as directed. Take any of your other usual medicines as directed. 3. Please contact us if: ??? You have excessive swelling. Typically you have not kept the injured extremity raised high enough. If the swelling does not go down after raising the injured extremity above the heart for 3 to 4 hours, call the clinic or come to the emergency department. ??? You feel excessive pain or your injured extremity becomes numb. Again, this usually happens whenthe injured extremity is not raised high enough. If the pain does not lessen after 3 to 4 hours of strict elevation, call the clinic. ??? Your cast/splint is too tight. Follow the instructions about raising the extremity. If you have any questions or concerns, please call the following: Orthopaedic Clinic Friday thru Friday 8am - 5pm (see below) Orthopaedic Physician macaroni press operator --After 5pm and Weekends [phone] We are interested in your prompt and healthy recovery. Please follow the above instructions. Please call the office (at number below) to verify your post fracture appointment, typically the following day or Friday if you injure yourself over the weekend. Your care today was provided by Carlos Alcantar MD Follow up be arranged to discuss surgery General orthopedic clinic (trauma/sports/pediatrics) [phone] AttachmentsThe following attachments cannot be sent through Care Everywhere. ANKLE FRACTURE (TOGOLESE)documented in this encounter Medications at Time of Discharge Medication Sig Dispensed Refills Start Date End Date aspirin 81 mg EC tablet 0 06/22/2008 traMADol (ULTRAM) 50 mg Take 1-2 tablets by 30 tablet 0 03/06/2016 Tablet mouth every 4 hours as needed for Pain. Use the minimum amount of this medication. Take as infrequently as possible. Ween off of this medication as rapidly as possible. ondansetron (ZOFRAN-ODT) 8 Take 1 tablet by 20 tablet 1 03/20/2016 mg Tablet, Rapid Dissolve mouth every 8 hours as needed for Nausea. atenolol (TENORMIN) 50 mg 0 06/22/2008 02/27/2016 tablet cephALEXin (KEFLEX) 500 mg 0 9 03/20/2016 capsule hydrochlorothiazide 0 06/22/200802/26 (HYDRODIURIL) 50 mg tablet potassium chloride (K-DUR) 0 9 02/27/2016 10 mEq tablet Omeprazole 20 mg TbEC 0 06/22/200804/2016 documented as of this encounter Progress Notes Mica Emery, RN - 02/24/2016 3:46 PM EST Pt d/c to home with VNA per md order. Patient AOx4 hrr, lung sounds clear, no sob or chest pain at time of discharge. +bs, LBM 02/22, voiding clear yellow urine. Patient ambulating independently with FWW at this time. Pain well controlled with PRN tramadol. All LDA's removed. All belongings home with p atient. Prescriptions given to patient, all discharge instructions reviewed with patient. All questions answered. Report to VNA/Rehab called, and report faxed. Please see flowsheet for full assessment. Mica Emery RN Lucille Zamora RN - 02/24/2016 3:36 PM EST Office of Care Management CDU/SDP/Emergency Department Platform Engineer CHRIS Jj RN, BSN, [facility] Pager # [phone] Notified by [facility] Appeals Department that patient's billing status has been changed to Medicare Observation Code 44. Notification of Patient Status Change letter has been given to patient or patient's sales representative [employer]. Letter has been signed and witnessed, a copy of letter made and the original given to patient. Patient or patient's sales representative [employer] offered copies of CMS publications; Are You a Hospital Inpatient or Outpatient? and Medicare Rights and Protections. Copy of letter to be scanned into patient's medical record. Oswaldo Douglas MD - 02/24/2016 5:54 AM EST ORTHOPAEDIC INPATIENT PROGRESS NOTE ID: [id number] with Right ankle fracture Subjective/Interim: No acute events, has not been OOB Objective: Temp: [36.4 ??C (97.5 ??F)-36.7 ??C (98.1 ??F)] Heart Rate: [60-66] Resp: [16-18] BP: (175-184)/(60-93) SpO2: [98 %-100 %] Heart Rate from SPO2: [66 bpm] I/O this shift: In: 150 [P.O.:150] Out: - Physical Exam: General: Well appearing, no acute distress Right Lower Extremity: Splint c/d/i SILT in exposed toes +EHL/FHL Toes WWP Assessment and Plan: 70yoF with right ankle fracture, stable. Plan to mobilize with PT today for hopeful discharge to home with delayed operative intervention. ??? Issues: ??? Activity: Mobilize with PT, NWB RLE ??? Tramadol PRN pain, no NSAIDs ??? Anticoagulation: ASA 81mg BID ??? Discharge planning: home vs rehab per PT Attending addendum: The preceeding portion of this note was written by Dr. Alacntar. I personally saw and evaluated the patient at the bedside and I agree with the assessment and plan documented above. Oswaldo Rolon M.D., M.S. documented in this encounter H&P Notes Carlos Alcantar MD - 02/24/2016 1:21 AM EST Patient was unable to mobilize safely and will require admission for PT and possible placement. Possible operative intervention during this admission. - Admit to orthopaedics - NWB RLE - Elevate RLE - Aspirin 81mg BID prophylaxis - PT/OT eval in morning - Home vs rehab pending PT eval Carlos Alcantar MD - 02/23/2016 10:25 PM EST Orthopaedic Consult Note Attending: Dr. Rolon Kristi Quiroz is a 70 y.o. female who presents to see us in consultation today at the request of No att. providers found for right ankle injury. Chief Complaint: right ankle and calf pain History of Present Illness: Kristi Quiroz is a 70 y.o. female who slipped in the ice and suffered a rotational injury to her right leg. Unable to bear weight. Denies head strike, LOC or pain elsewhere. Past Medical and Surgical History: Hypertension Allergies: Allergies Allergen Reactions ??? Acetaminophen CIS - Palpitations, high HR ??? Codeine Phosphate CIS - palpitations, elevated HR Current Medications: No current facility-administered medications on file prior to encounter. Current Outpatient Prescriptions on File Prior to Encounter Medication Sig Dispense Refill ??? atenolol (TENORMIN) 50 mg tablet ??? aspirin 81 mg EC tablet ??? cephALEXin (KEFLEX) 500 mg capsule ??? hydrochlorothiazide (HYDRODIURIL) 50 mg tablet ??? potassium chloride (K-DUR) 10 mEq tablet ??? Omeprazole 20 mg TbEC ??? naproxen (NAPROSYN) 500 mg tablet Family History: Non-contributory. 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 Sensation intact to light touch in T/DP/SP distributions Motor intact ankle flexion/extension (pain limited), EHL/FHL/TA Brisk capillary refill distally 2+ DP/PT pulses Imaging: X-rays show proximal fibula spiral fracture. On the gravity stress view there is widening of the medial joint space at the ankle relative to the superior joint space. Assessment/Plan: 70 y.o. female who presents with right ankle fracture which will likely require operative fixation. Splinted. NWB. No NSAIDs. Follow-up next week to discuss operative fixation. Carlos Alcantar MD PGY-5 Orthopaedic Surgery Pager: #[phone] documented in this encounter ED Notes Vanessa Encinas MD - 02/24/2016 1:29 AM EST Patient Name: Kristi Quiroz Patient Age: 70 y.o. Birthdate: 1945 Admit date: 02/23/2016 Attending Physician: No att. providers found ED Course ED ATTENDING NOTE: I was asked to see this patient by Benji Rolon to assist with medical decision making regarding evaluation, management and disposition of this patient. Below reflects my involvement in medical decision making, please see the Associate Provider's note for additional details. Clinical Summary: 70 y.o. female presents for evaluation of right leg pain after a fall. The patientwas seen in an outside hospital and found to have a right proximal fibula fracture. In addition, abnormalities seen on the ankle view raises concern for a Maisonneuve fracture. Orthopedic surgery is consulted for assistance in management. Focused Exam: BP 179/69 (BP Location (NBP): Left arm) Pulse 66 Temp 36.6 ??C (97.9 ??F) (Oral) Resp 18 Ht 180.3 cm(5' 11) Wt (!) 103.4 kg (228 lb) SpO2 100% BMI 31.8 kg/m2 patient is resting comfortably in bed. At the time of my evaluation, a splint was in place to the right lower extremity. Patient is able to move her toes, and skin is pink warm and dry with no evidenceof cyanosis. Medical Decision Making: patient is transferred from outside hospital for management of a right proximal fibula fracture withabnormal stress views of the right ankle raising concern for [place] fracture. Patient was placed in a splint. Initially, we anticipated outpatient management. However, patient was not able to ambulate with crutches and we felt that she was at high risk for recurrent fall. Patient was eventually admitted to orthopedic surgery for pain management and for inability to ambulate in the setting of acute fracture. Vanessa Encinas MD 02/24/16 0133 Brittney Castro RN - 02/24/2016 12:45 AM EST RN offered to get a different type of anti-nausea medication. Pt states I don't want to take anything at all; nothing more. refusing pain medication at this time as well. Brittney Castro RN - 02/24/2016 12:20 AM EST Walking trial failed. Pt able to teach back instructions of crutches but poor execution. Pt is weak,in pain, and nauseous. Pt only able to ambulate 6 feet crutches and near fall with 2 standby assists. MD notified of failure and RNs opinion of pt being unsafe to go home at this time; MD plan to talk to attending and return call with my plan. Brittney Castro RN - 02/23/2016 11:19 PM EST Ortho at bedside. Alfredo Douglas PA - 02/23/2016 10:51 PM EST Chief Complaint Patient presents with ??? Fall HPI 70 y.o. female is transferred from an OSH to see orthopedics for a right proximal fibula fracture that she sustained when she fell on the ice today. She did not hit her head or neck and has no head or neck pain. No LOC, vomiting, or changes in vision. She has minimal chest wall pain and OSH xr showed non displaced rib fracture. No other known injuries or concerns at this time. Allergies Allergen Reactions ??? Acetaminophen CIS - Palpitations, high HR ??? Codeine Phosphate CIS - palpitations, elevated HR Review of Systems Constitutional: Negative for chills and fever. HENT: Negative for trouble swallowing. Eyes: Negative for visual disturbance. Respiratory: Negative for shortness of breath. Cardiovascular: Positive for leg swelling. Negative for chest pain. Gastrointestinal: Negative for abdominal distention, abdominal pain, nausea and vomiting. Musculoskeletal: Negative for back pain, neck pain and neck stiffness. Skin: Negative for pallor. Neurological: Negative for headaches. Psychiatric/Behavioral: Negative for agitation. Physical Exam Constitutional: She appears well-developed and well-nourished. No distress. HENT: Head: Normocephalic. Eyes: Conjunctivae are normal. Neck: Normal range of motion. Cardiovascular: Normal rate and regular rhythm. Pulmonary/Chest: Effort normal. No respiratory distress. She has no wheezes. She has no rales. She exhibits tenderness. Musculoskeletal: Right hip: Normal. She exhibits normal range of motion and normal strength. Left hip: Normal. She exhibits normal range of motion. Right knee: She exhibits normal range of motion, no erythema and no bony tenderness. No tenderness found. No medial joint line and no lateral joint line tenderness noted. Left knee: Normal. She exhibits normal range of motion. No tenderness found. Right ankle: She exhibits decreased range of motion. She exhibits no swelling, no ecchymosis, no deformity, no laceration and normal pulse. Tenderness. Lateral malleolus and medial malleolus tenderness found. Achilles tendon normal. Left ankle: Normal. She exhibits normal range of motion and normal pulse. Right lower leg: She exhibits tenderness and bony tenderness. Brisk capillary refill, intact distal pulses, sensation intact to light touch Skin: Skin is warm and dry. She is not diaphoretic. No erythema. Procedures XR reviewed by myself: Proximal fibula fx, widening of medial joint space with stress views of ankle MDM 70 y.o.nontoxic-appearing female transferred from OSH to see orthopedics for fibula fx. Pt is medically stable at this time. Orthopedics plans to place the pt in splint, discharge, and possible outpatient ORIF. No other medical complaints or concerns at this time. Patient is in minimal discomfort. Patient was signed out to Dr. Encinas. Alfredo Rolon PA 02/24/16 1059 Brittney Castro RN - 02/23/2016 9:14 PM EST Pt declines pain medication at this time. documented in this encounter Miscellaneous Notes Plan of Care - Liana Hobson, PT - 02/24/2016 4:04 PM EST Problem: Acute Rehab Services Goal & Intervention Plan Goal: Physical Therapy Goal Stand Alone Therapy Goal Outcome: Outcome (s) achieved Date Met: 02/24/16 02/24/161655 Physical Therapy Goal PT Goal, Date Established 02/24/16 PT Goal, Time to Achieve 1 day PT Goal, [place] Level supervision required PT Goal, Outcome goal met Physical Therapy Assessment Pt seen for skilled PT. Please see the Rehab Evaluation Summaries report for objective data and specifics of today???s session. Pt tolerated rx fairly well being able to walk 40', however, with NWB status, unable to hop up or bump up stairs and pt decided to go to her mother's house with ramp and w/c which she can have assist with. Safe to d/c home at this level as she has assist. No further inpatient PT needs - d/c. Staff Mobility Recommendations: none - d/c'd Precautions/Restrictions: weight bearing (nwb) Anticipated Physical Therapy Frequency: evaluation only Anticipated Equipment Needs at Discharge: (has w/c and walker) Anticipated Discharge Disposition: home with home health (PT/OT needed) Pager: [phone] LIANA HOBSON, PT 02/24/2016 Inpatient Physical Therapy G-Code: Mobility Status Modifier CURRENT CJ - At least 20 percent but less than 40 percent impaired, limited or restricted PROJECTED CJ - At least 20 percent but less than 40 percent impaired, limited or restricted DISCHARGE CJ - At least 20 percent but less than 40 percent impaired, limited or restricted G Code Rationale: This G-Code and these disability modifiers were selected as the primary therapy goal based upon the patient's evaluation including the following functional test(s) No Functional Measure Used. Current ability measures, co-morbidities and clinical judgement were also used to select the disability modifier. This Patient's current G-Code functional level is 20-39% impaired based upon clinical judgement. Care Management - Lynette Martinez, RN - 02/24/2016 1:36 PM EST Patient with plan for discharge to home with son to patient's sister's home. Originally she was going to go to her mom's that has a ramp but she now wants to go to her sisters that has 5 stairs to get in. She said that her sister has a wheelchair and her mother has a walker. She plans to bump up the stairs as the PT told me to do. She said that she had plenty of help to do it so was not worried about it not being able to happen. Son was at bedside and agreed with tgis plan. The patient has been provided a list of Home Health Agencies/DME vendors which serve their preferredgeographic area. A letter describing our affiliations was reviewed with them and they were educated about their right to choose where referrals are placed. Patient requests referral to [facility] and [place] PHONE:[phone] FAX: [phone] Expected date of discharge: Today. Referral routed to the Intensivist for matching with agency/vendor and to provide any required information. MD: Please add home care orders to discharge summary. RN: Please fax discharge summary to above [facility] with RN report. Covering pager #[phone]. Plan of Care - Alayna Michael OT - 02/24/2016 1:07 PM EST Problem: Acute Rehab Services Goal & Intervention Plan Goal: Grooming Goal Stand Alone Therapy Goal Outcome: Ongoing (Interventions Implemented as Appropriate) 02/24/16 1258 Grooming Goal Grooming Goal, Date Established 02/24/16 Grooming Goal, Time to Achieve 5 - 7 days Grooming Goal, Activity Type Pt will stand sink level with walker, supervision, 2-3 light hygiene tasks Occupational Therapy Evaluation Precautions/Restrictions: weight bearing (NWB RLE) Assessment: Pt has been seen by OT for evaluation, please refer to associated flowsheet data for details. Pt able to maintain NWB RLE with functional transfers and mobility with walker household distances. Pt has been staying/caring for her mother and handicap sister at her mother's home, which does have a ramp. Other option, sister's house, has 4 steps to enter, and pt unable to negotiate stairs. Anticipate pt will return to mom's house while waiting surgery on her leg. Anticipate will be using wheelchair most of the time secondary to NWB RLE, would benefit from commode. Would benefit from home OT services. Therapy Frequency: 2-3 times/wk Pager: [phone] ALAYNA MICHAEL OT 02/24/2016 Occupational Therapy Rehabilitation Department Goal: LB Dressing Goal Stand Alone Therapy Goal Outcome: Ongoing (Interventions Implemented as Appropriate) 02/24/16 1258 LB Dressing Goal LB Dressing Goal, Date Established 02/24/16 LB Dressing Goal, Time to Achieve 5 - 7 days LB Dressing Goal, Activity Type Pt will independent LE ADLs with AE as needed Goal: Occupational Therapy Goal Stand Alone Therapy Goal Outcome: Ongoing (Interventions Implemented as Appropriate) 02/24/16 1258 Occupational Therapy Goal OT Goal, Date Established 02/24/16 OT Goal, Activity Type Pt will demonstrate good standing balance for ADLs with unilateral UE supportduring toileting, standing to hike pants Goal: Toileting Goal Stand Alone Therapy Goal Outcome: Ongoing (Interventions Implemented as Appropriate) 02/24/16 1258 Toileting Goal Toileting Goal, Date Established 02/24/16 Toileting Goal, Time to Achieve 5 - 7 days Toileting Goal, Activity Type Pt will be modified independent with walker toilet transfers, hygiene/clothing management, mobility to/from bathroom G-Code: Self-Care Status Modifier CURRENT CJ - At least 20 percent but less than 40 percent impaired, limited or restricted PROJECTED CJ - At least 20 percent but less than 40 percent impaired, limited or restricted DISCHARGE CJ - At least 20 percent but less than 40 percent impaired, limited or restricted G Code Rationale: This G-Code and these disability modifiers were selected as the primary therapy goal based upon the patient's evaluation including the following functional test(s) No Functional Measure Used. Current ability measures, co-morbidities and clinical judgement were also used to select the disability modifier. Ms. Quiroz's current G-Code functional level is 50% impaired based upon clinical assessment of functional capabilities. Plan of Care - Giovanna Camp RN - 02/24/2016 5:39 AM EST Problem: Skin Integrity Impairment, Risk/Actual (Adult) Goal: Identify Related Risk Factors and Signs and Symptoms Related risk factors and signs and symptoms are identified upon initiation of Human Response Clinical Practice Guideline (CPG) OUTCOME EVALUATION NOTE: pt was admitted to unit at 0300. Vss. See flow sheet. OUTCOME SUMMARY: pt will maintain pain control PLAN MOVING FORWARD: D/c to home INDIVIDUALIZED FALL PREVENTION INTERVENTIONS: non-skid socks Patient-specific fall risk factors per assessment: [current deficits]: weakness Assistance [level of assistance required for transfers and ambulation]: 2 person Supervision [direct monitoring required during toileting and ADLs]: masimo Surveillance [continuous indirect monitoring]: masimo Patient-specific fall prevention interventions for sensory deficits provided, if applicable: [place] as needed CPG GOAL OUTCOME EVALUATION: documented in this encounter Plan of Treatment Not on filedocumented as of this encounter Procedures Procedure Name Priority Date/Time Associated Diagnosis Comme nts XR ANKLE MIN 3 STAT 02/23/2016 10:27 PM Result s for this VIEWS RIGHT EST procedure are i n the results section. documented in this encounter Results XR Ankle Min 3 views Right (Generic) (02/23/2016 10:27 PM EST) Anatomical Region Laterality Modality Ankle Right Digital Radiography Specimen (Source) Anatomical Location Collection Method / Collectio n Time Received Time / Laterality Volume Addenda Addendum by Zita Oates MD on 03/13 9:13 AM EST CLINICAL HISTORY: ??right ankle and calf pain s/p fall. AP, lateral and oblique as well as gravity stress AP of the righ t ankle to eval for fx Addendum by Zita Oates MD on 03/11 10:48 AM EST CLINICAL HISTORY: ??right ankle and calf pain s/p fall. AP, lateral and oblique as well as gravity stress AP of the righ t ankle to eval for fx Impressions 02/23/2016 10:55 PM EST No acute osseous injury. I have personally reviewed the image(s) and the residents interpretation and agree with the findings, ZITA OATES at 02/23/2016 10:55 PM Narrative 02/23/2016 10:55 PM EST EXAMINATION: XR ANKLE MIN 3 VIEWS RIGHT (GENERIC) CLINICAL HISTORY: AP, lateral and obliqu e as well as gravity stress AP of the right ankle to eval for fx TECHNIQUE: AP, oblique and lateral views of the right ankle as well as a stress view. COMPARISON: None FINDINGS: No fracture or dislocation. The ankle mo rtise is congruent, and there is no widening of the medial clear space with stress views. Procedure Note Zita Oates MD - 02/23/2016Formatti ng of this note might be different from the original. EXAMINATION: XR ANKLE MIN 3 VIEWS RIGHT (GENERIC) CLINICAL HISTORY: AP, lateral and obliqu e as well as gravity stress AP of the right ankle to eval for fx TECHNIQUE: AP, oblique and lateral views of the right ankle as well as a stress view. COMPARISON: None FINDINGS: No fracture or dislocation. The ankle mo rtise is congruent, and there is no widening of the medial clear space with stress views. IMPRESSION No acute osseous injury. I have personally reviewed the image(s) and the residents interpretation and agree with the findings, ZITA OATES at 02/23/2016 10:55 PM Oswaldo Rolon MD IMG DX ORDERABLES documented in this encounter Visit Diagnoses Diagnosis Right ankle fracture - Primary Unspecified closed fracture of ankle Closed fracture of proximal end of right fibula, unspecified fracture morphology, initial encounter Ankle fracture, right, closed, initial e ncounter documented in this encounter Administered Medications Inactive Administered Medications - up to 3 most recent administrations Medication Order MAR Action Action Date Dose Rate Site calcium carbonate (TUMS) chewable Given 02/24/2016 3:20 PM EST 5 00 mg tablet 500 mg 500 mg, Oral, DAILY PRN, Starting on 02/24/16 at 1458, Until 02/24/16 at 1804, Heartburn, Routine HYDROmorphone (DILAUDID) injection Given 02/23/2016 10:11 PM EST 0.5 mg Left Arm 0.5 mg 0.5 mg, Intravenous, EVERY 4 HOURS PRN, Starting on Fri02/23/16 at 2208, Until Fri02/23/16 at 2314, Pain, Routine ketorolac (TORADOL) injection 30 mg Given 02/24/2016 1:20 AM EST 30 mg 30 mg, Intravenous, ONCE PRN, 1 dose, Starting on Fri02/23/16 at 2334, Until 02/24/16 at 0120, Pain, Immediately prior to d/c, Routine multivitamin Kelf-Hy-NC-Min (THERAPEUTIC-M) Given 01/26 9:00 AM EST 1 tablet 27-0.4 mg tablet 1 tablet 1 tablet, Oral, DAILY, First dose on 02/24/16 at 0900, Until Discontinued ondansetron (ZOFRAN) 4 mg/2 mL injection 1 dose, Starting on Fri02/23/16 at 2313, Until Fri at 2314, BRITTNEY CASTRO: cabinet override ondansetron (ZOFRAN) injection 4 mg Given 02/23/2016 11:14 PM EST 4 mg 4 mg, Intravenous, EVERY 8 HOURS PRN, Starting on Fri02/23/16 at 2314, Until 02/24/16 at 0322, Nausea sodium chloride 0.9 % flush 5 mL Given 02/24/2016 9:00 AM EST 5 mLs 5 mL, Intravenous, 2 TIMES DAILY, First dose on 02/24/16 at 0900, Until Discontinued, Routine traMADol (ULTRAM) tablet 50-100 mg Given 02/24/2016 3:20 PM EST 50 mg 50-100 mg, Oral, EVERY 6 HOURS PRN, Starting on 02/24/16 at 0322, Until 02/24/16 at 1804, Pain, Give 50 mg for mild to moderate pain (4-6). Give 100 mg for severe pain (7-10) If pain not relived after 60 minutes by a dose of 50 mg then may repeat 50 mg ONCE. Maximum of 400 mg/day., Routine documented in this encounter Active and Recently Administered Medications Times are shown in EST. Scheduled Medication Order 02/22/2016 02/23/2016 02/24/2016 aspirin EC tablet 81 mg 81 mg, Oral, 2 TIMES DAILY, First dose o n 02/25/16 at 0900, Until Discontinued, Routine atenolol (TENORMIN) tablet 50 mg 1100 (Not Given - Provider: Mica Emery RN - Reason: Patient/family refused) 50 mg, Oral, DAILY, First dose on Sat at 1100, Until Discontinued, Hold for systolic blood pressure < 110 or HR < 60, Routine hydroCHLOROthiazide (HYDRODIURIL) tablet 50 mg 1100 (Not Given - Provider: Mica Emery RN - Reason: Patient/family refused) 50 mg, Oral, DAILY, First dose on Sat at 1100, Until Discontinued, Hold for SBP < 140, Routine multivitamin Cvqj-Oj-AT-Min (THERAPEUTIC-M) 27-0.4 mg tablet 1 t ablet 0900 (Given - Provider: Mica Emery, CHRIS) 1 tablet, Oral, DAILY, First dose on 02/24/16 at 0900, Until Discontinued, Routine polyethylene glycol (MIRALAX) packet 17 g 0900 (Not Given - Provider: Mica Emery RN - Reason: Patient/family refused) 17 g, Oral, 2 TIMES DAILY, First dose on 02/24/16 at 0900, Until Discontinued, Routine potassium chloride (K-DUR/KLOR-CON) extended release tablet 10 m Eq 1100 (Not Given - Provider: Mica Emery RN - Reason: Patient/family refused) 10 mEq, Oral, DAILY, First dose on Sat 1 at 1100, Until Discontinued, Routine senna-docusate (PERICOLACE) 8.6-50 mg per tablet 2 tablet 0900 (Not Given - Provider: Mica Emery RN - Reason: Patient/family refused) 2 tablet, Oral, 2 TIMES DAILY, First dos e on 02/24/16 at 0900, Until Discontinued, Routine sodium chloride 0.9 % flush 5 mL 0900 (Given - Provider: Mica Emery, CHRIS) 5 mL, Intravenous, 2 TIMES DAILY, First dose on 02/24/16 at 0900, Until Discontinued, Routine PRN Medication Order 02/22/2016 02/23/2016 02/24/2016 calcium carbonate (TUMS) chewable tablet 500 mg 1520 (Given - Provider: Mica Emery, CHRIS) 500 mg, Oral, DAILY PRN, Starting Sat at 1458, Until 02/24/16 at 1804, Heartburn, Routine HYDROmorphone (DILAUDID) injection 0.5 mg (CANCELED) 2210 (Given - Provider: Amina Gilbert LPN) 0.5 mg, Intravenous, EVERY 4 HOURS PRN, Starting 02/23/16 at 2208, Until 02/23/16 at 2314, Pain, Routine ketorolac (TORADOL) injection 30 mg (COMPLETED) 0120 (Given - Provider: Brittney Castro RN) 30 mg, Intravenous, ONCE PRN, 1 dose, St arting 02/23/16 at 2334, Until 02/24/16 at 0120, Pain, Immediately prior to d/c, Routine lidocaine (XYLOCAINE) 10 mg/mL (1 %) injection 3 mg 3 mg (0.3 mL), Subcutaneous, ONCE PRN, 1 dose, Starting 02/24/16 at 0322, Until 02/24/16 at 1804, for discomfort with PIV insertion, Routine LORazepam (ATIVAN) injection 0.5 mg 0.5 mg, Intravenous, EVERY 8 HOURS PRN, Starting 02/24/16 at 0322, Until 02/24/16 at 1804, nausea, Use if other selected antiemetics ineffective after 2 hours metoclopramide (REGLAN) injection 10 mg 10 mg, Intravenous, EVERY 8 HOURS PRN, S tarting 02/24/16 at 0322, Until 02/24/16 at 1804, Nausea, Vomiting, If multiple antiemetics are ordered, use ondansetron first, prochlorperazine second, metaclopromide third., Routine ondansetron (ZOFRAN) injection 4 mg (CANCELED) 2313 (Given - Provider: Brittney Castro, CHRIS) 4 mg, Intravenous, EVERY 8 HOURS PRN, St arting 02/23/16 at 2314, Until 02/24/16 at 0322, Nausea ondansetron (ZOFRAN) injection 4 mg 4 mg, Intravenous, EVERY 8 HOURS PRN, St arting 02/24/16 at 0322, Until 02/24/16 at 1804, Nausea, If multiple antiemetics are ordered, use ondansetron first, prochlorperazine second, metaclopromide third. prochlorperazine (COMPAZINE) injection 10 mg 10 mg, Intravenous, EVERY 6 HOURS PRN, S tarting 02/24/16 at 0322, Until 02/24/16 at 1804, Nausea, If multiple antiemetics are ordered, use ondansetron first, prochlorperazine second, metaclopromide third., Routine sodium chloride 0.9 % flush 5-20 mL 5-20 mL, Intravenous, EVERY 1 MIN PRN, S tarting 02/24/16 at 0322, Until 02/24/16 at 1804, flush, Flush pertains to all indwelling lines. Flush per protocol found in the job aid using the link provided on this medication record., Routine traMADol (ULTRAM) tablet 50-100 mg 1520 (Given - Provider: Mica Emery RN) 50-100 mg, Oral, EVERY 6 HOURS PRN, Star ting 02/24/16 at 0322, Until 02/24/16 at 1804, Pain, Give 50 mg for mild to moderate pain (4-6). Give 100 mg for severe pain (7-10) If pain not relived af ter 60 minutes by a dose of 50 mg then m ay repeat 50 mg ONCE. Maximum of 400 mg/day., Routine documented in this encounter Care Teams Conveyancer Relationship Specialty Start Date End Date Joanne Weaver MD PCP - General 01/16/[address] [place] [id number] documented as of this encounter
--- OUTSIDE RECORDS SUMMARY | 2021-10-05 00:28 | XMS_ITS ---
:1945 Author Care Team Providers Name Role Phone DR. YADY MURRAY Primary Care Provider [phone] DR. YADY MURRAY Referring Provider [phone] YADY MURRAY MD (DIRECT) Primary Care Provider Allergies Code Code System Name Reaction Severity Status Onset RxNorm Amlodipine ? ? Active ? 120 RxNorm Atenolol ? ? Active ? 2670 RxNorm Codeine ? ? Active ? 3640 RxNorm Doxycycline ? ? Active ? 626017 RxNorm Hyzaar ? ? Active ? 93308 RxNorm Lisinopril ? ? Active ? 64490 RxNorm Pravastatin ? ? Active ? Medications Name Status Start Date Stop Date ? ? Ilotycin 5 mg/gram (0.5 %) eye ointment Completed ? 11/21/2020 Apply 1 application 4 times a day by ophthalmic route as di rected for 7 days. Left Eye. losartan 25 mg tablet Active ? Not availa ble Take 1 tablet every day by oral route. metoprolol succinate Completed ? 11/21/2020 50 mg every day metoprolol succinate ER 50 mg tablet,extended release 24 hr Acti ve ? Not available Take 1 tablet every day by oral route. Problems Name Status Onset Date Source ? Hypertensive Disorder Active 08/16/2017 ? Hypercholesterolemia Active 11/21/2020 ? Angina Pectoris Active 11/21/2020 ? Coronary Arteriosclerosis Active 11/21/2020 ? Gastroesophageal Reflux Disease without Esophagitis Active 11/21/2020 ? Pyelonephritis Active 11/21/2020 ? Pilonidal Cyst Active 11/21/2020 ? Bilateral Bursitis of Hips Active 11/21/2020 ? Edema of Foot Active 08/14/2021 ? Bursitis of Left Foot Active 08/14/2021 ? Pain in Left Foot Active 08/14/2021 ? Metatarsalgia of Left Foot Active 08/14/2021 ? Hyperlipidemia Active ? ? Obesity Active ? ? Reactive Airway Disease Active ? ? Uterine Prolapse Active ? ? Eczema Active ? ? Bursitis of Hip Active ? ? Notes: cardiac artery issues Procedures Date Name Performed by ? ? Ultrasonography of Right Ankle Informati on not available ? Colonoscopy Information not avai lable ? Cardiac Catheterization Information not available ? Appendectomy Information not avai lable Results Lab Results None recorded. Past Encounters 08/14/2021 Bursitis of Left Foot; Pain in Left Foot ; Metatarsalgia of Left Foot; Edema of Foot Oswaldo Mcrae DPM: [address] [place] [address], Ph. Social History Tobacco Smoking Status Never Smoker Vaccine List None recorded. Plan of Care Reminders Provider Appointments None recorded. ? ? Lab None recorded. ? ? Referral None recorded. ? ? Procedures None recorded. ? ? Surgeries None recorded. ? ? Imaging None recorded. ? ? Vitals None recorded.
--- OUTSIDE RECORDS SUMMARY | 2021-10-05 00:28 | XMS_ITS | Encounter Summary ---
:1945 [place] [address] Care Team Providers Name Role Phone Joanne Weaver MD Primary Care Provider Encounter Details Date Type Department Care Team Description 02/23/2016 [facility] [place] [address] [place] [address] [phone] (Wo rk) Social History Tobacco Use Types Packs/Day Years Used Date Never Assessed Sex Assigned at Date Recorded Not on file documented as of this encounter Medications at Time of Discharge Medication Sig Dispensed Refills Start Date End Date aspirin 81 mg EC tablet 0 06/22/2008 atenolol (TENORMIN) 50 mg tablet 0 02/27/2016 cephALEXin (KEFLEX) 500 mg capsule 0 0 06/22/2008 03/20/2016 hydrochlorothiazide (HYDRODIURIL) 50 mg 0 06/22/2008 02/27/2016 tablet potassium chloride (K-DUR) 10 mEq tablet 0 06/22/2008 02/27/2016 Omeprazole 20 mg TbEC 0 06/22/200804/2016 naproxen (NAPROSYN) 500 mg tablet 0 02/24/2016 documented as of this encounter Plan of Treatment Not on filedocumented as of this encounter Procedures Procedure Name Priority Date/Time Associated Diagnosis Comme nts FILM LIBRARY Routine 02/23/2016 12:00 AM Pain Results for this STORAGE ONLY DX EST procedure ar e in LOWER EXTREMITY the results section. documented in this encounter Results Film Library- Storage Only DX Lower Extremity (02/23/2016 12:00 AM EST) Specimen (Source) Anatomical Location Collection Method / Collectio n Time Received Time / Laterality Volume Narrative [facility] [place] - 02/23/2016 6:43 PM EST This exam is for storage only and is aut o-finalizing. Homer Núñez MD IMG FILM LIBRARY ORDERABLES Performing Organization Address City/State/ZIP Code Phon e Number [place], [place] documented in this encounter Visit Diagnoses Diagnosis Pain Generalized pain documented in this encounter Care Teams Coloring Room Worker Relationship Specialty Start Date End Date Joanne Weaver MD PCP - General 01/16/[address] [place] [phone] documented as of this encounter
--- OUTSIDE RECORDS SUMMARY | 2021-10-05 00:28 | XMS_ITS | Encounter Summary ---
:1945 Author Organization [facility] [address] Care Team Providers Name Role Phone Joanne Weaver MD Primary Care Provider Encounter Details Date Type Department Care Team Description 02/27/2016 Orders Only Orthopaedics at [facility] [place] Arianna, Yovani Mitchell MD Maisonneuve fracture Formerly [facility] (Pr imary Dx) [place] [address] ORTHOPAEDIC [phone] SURGERY [place] [id number] Social History Tobacco Use Types Packs/Day Years Used Date Never Smoker Alcohol Use Standard Drinks/Week Comments No 0 (1 standard drink = 0.6 oz pure alcoho l) Sex Assigned at Date Recorded Not on file documented as of this encounter Plan of Treatment Scheduled Orders Name Type Priority Associated Diagnoses Order S chedule ORIF SYNDESMOSIS, Procedures Routine One Time f or 1 ANKLE Occurrences sta rting 02/27/2016 unti l 02/27/2016 documented as of this encounter Results XR Chest PA & [...] the findings, Karis bravo 02/27/2016 2:43 PM Narrative 02/27/2016 2:43 PM [...] EXAMINATION: XR CHEST PA AND LATERAL (GE NERIC) CLINICAL HISTORY: Preoperative TECHNIQUE: PA and lateral [...] findings, Karis jensen t 02/27/2016 2:43 PM Yovani Keller MD IMG DX ORDERABLES (ABNORMAL) Basic Metabolic Panel (non-fasting) (02/27/2016 1:45 PM EST) athologist Signature Glucose Lvl 102 65 - 199 [facility] mg/dL [facility] Comment: Diabetes: >=200 mg/dL plus symp toms BUN 19 (H) 8 - 18 mg/dL [facility] Creatinine 0.84 0.70 - 1.20 mg/dL [facility] Comment: Please note that the pediatric reference intervals supplied above were not validated at [facility]. Results from pediatri c patients should be interpreted in conjunction to the patient's age, height and muscle mass. Sodium 139 135 - 145 mmol/L [facility] Potassium 4.6 3.5 - 5.0 mmol/L [facility] Comment: Please note: ??Patients with WBC >100,00 0 may have falsely elevated Potassium levels. ??For accurate Potassium quantif ication in these patients send serum separator tube (gold top) for subsequent determinations. ??Contact the Clinical Chemistry Laboratory if there are any qu estions. Chloride 101 98 - 107 mmol/L [facility] CO2 26 22 - 31 mmol/L [facility] Anion Gap 12 5 - 15 mmol/L [facility] Calcium 9.0 8.5 - 10.5 mg/dL [facility] Estimated GFR >60 >=60 [facility] Comment: This estimated GFR [...] the following links into your internet browser. [email or web address] Specimen Anatomical Collection Method Collection Time Receive d Time (Source) Location / / Volume Laterality Blood specimen 02/27/2016 1:45 PM 017 1:56 (specimen) EST PM EST Resulting Agency Comment Spec In Lab Yovani Keller MD CHEMISTRY ORDERABLES Performing Organization Address City/State/[place] [address] EKG 12 Lead (02/27/2016 1:32 PM EST) Component Value Ref Range Test Analysis Performed Pathologis t Method Time At Signature Ventricular rate 53 BPM MUSE SYSTEM Atrial Rate 53 BPM MUSE SYSTEM P-R Interval 130 ms MUSE SYSTEM QRS Duration 112 ms MUSE SYSTEM Q-T Interval 446 ms MUSE SYSTEM QTC Calculated 418 ms MUSE SYSTEM (Bezet) Calculated P [place] 21 degrees MUSE SYSTEM Calculated R [place] 11 degrees MUSE SYSTEM Calculated T [place] 30 degrees MUSE SYSTEM INTERPRETATION Sinus bradycardia MUSE SY STEM Incomplete right bundle branch block Borderline ECG When compared with ECG of 22-JUN-2008 12:37, No significant change was found Confirmed by MD Vitale Timothy ([id number]) on 02/27/2016 2:01:03 PM Specimen Anatomical Collection Method Collection Time Receive d Time (Source) Location / / Volume Laterality 02/27/2016 1:32 PM 7 2:01 EST PM EST Yovani Keller MD ECG ORDERABLES Performing Organization Address City/State/ZIP Code Phon e Number MUSE SYSTEM documented in this encounter Visit Diagnoses Diagnosis Maisonneuve fracture - Primary Maisonneuve fracture documented in this encounter Care Teams Facility Engineer Relationship Specialty Start Date End Date Joanne Weaver MD PCP - General 01/16/[address] [place] [id number] documented as of this encounter
--- OUTSIDE RECORDS SUMMARY | 2021-10-05 00:28 | XMS_ITS | Encounter Summary ---
:1945 Author Care Team Providers Name Role Phone Dr. Radha Maynard Primary Care Provider [phone] Radha Maynard MD (Direct) Primary Care Provider Dr. Radha Maynard Referring Provider [phone] Reason for Visit toe pain, left Assessment and Plan 1. Bursitis of left foot Assessment: Bursal edema plantar second metatarsal phalangeal joint bursa left foot Plan: I have recommended and the patient has consented to a corticosteroid injection in the plantar bursa of the second metatarsal phalangeal joint of the left foot. Indications and risks of the injection were described to the patient. Procedure: 51452-[id number] chloride and alco hol were used to sterilize and anesthetize the skin on the dorsal foot on the lateral side of the left second metatarsal head. A 25-gauge inch and half needle was used to introduce triamcinolone acetoni de 40 mg in an injectable suspension into the plantar bursa. The patient tolerated well without problem. Sterile Band-Aids were applied over the injection site an d postinjection care was reviewed with lawrence davis patient I will follow-up with her in 4 weeks for further evaluation and care. 2. Pain in left foot 3. Metatarsalgia of left foot 4. Edema of foot Discussion Note: None recorded.Patient educational handouts: No information available. Plan of Care Reminders Provider Appointments General Surgery Consult 40 11/23/2021 12:30PM Aden Astorga MD Min Lab None recorded. ? ? Referral None recorded. ? ? Procedures None recorded. ? ? Surgeries None recorded. ? ? Imaging None recorded. ? ? Medications Name Start Date ? ? losartan 25 mg tablet ? Take 1 tablet every day by oral route. metoprolol succinate ER 50 mg tablet,extended release 24 hr ? Take 1 tablet every day by oral route. Medications Administered None recorded. Vitals None recorded. Results Lab Results None recorded. Allergies Code Code System Name Reaction Severity Onset 22602 RxNorm Amlodipine ? ? ? 1202 RxNorm Atenolol ? ? ? 2670 RxNorm Codeine ? ? ? 3640 RxNorm Doxycycline ? ? ? 861013 RxNorm Hyzaar ? ? ? 75140 RxNorm Lisinopril ? ? ? 54597 RxNorm Pravastatin ? ? ? Problems Name Status Onset Date Source ? [...] available ? Appendectomy Information not avai lable Vaccine List None recorded. Social History Tobacco Smoking Status Never Smoker What was the date of your most recent tobacco screening? Do you or have you ever used any other forms of tobacco or n icotine? N What is your code status? 0 Family History Relation Problem Onset Age of Age Notes Mother Heartburn (No Information) N/A (No Notes) Father Heart disease (No Information) N/A Brother Myocardial infarction (No Information) N/A (N o Notes) Functional Status Unknown. Past Encounters 08/14/2021 Bursitis of Left Foot; Pain in Left Foot ; Metatarsalgia of Left Foot; Edema of Foot Oswaldo Mcrae, DPM: [address] [place] [address], Ph. History of Present Illness Note: <div>Kristi is a 76-year-old patient who was seen today for 4-month history of pain in the plantar left foot. She has noticed some swelling in the foot and predictable pain with walking and weightbearing activities. She endorses no specific history of injury or trauma to her left foot. She has had no treatment for this other than local anti-inflammatories and restriction of some walking activities.</div> Review of Systems ? Notes: <div>All negative except for HPI</div> Physical Exam ? Notes: <div>Constitutional: Well-gr oomed, well developed, appears stated age, well nourished, no acute distress , alert and oriented to time, place and person, weight-overweight

Psy chiatric: Mental status-loquacious very pleasant patient, mood and affect nor mal, behavior normal,cognition and thought content normal, fund of knowledge is intact, attention span and ability to concentrate is normal, able to articulat e well with normal speech and language

Respiratory: Non labored respiratory effort, chest-symmetrical expansion, no respiratory di stress, no adventitious sounds, no shortness of breath, respiration rate of 14

Vascular:
Dorsalis pedis pulse-2/4
Posterior tibia l pulse-1/4
Venous filling time at the digit levels-1 second
Digital h air-absent
Skin texture and turgor-slightly decreased
Pedal temperatu re-warm
Extremity varicosities-no noted
Edema-trace pedal e pierce
Ischemia-none noted
Digital cyanosis-none noted

L ymphatic: no lymphedema noted

Dermatologic: There is no evidence of any breaks in skin integrity or skin lesions on the lower legs, ankles or feet. There is normal skin texture and turgor on all extremities surfaces. There is no evidence of cellulitic or lymphangitic activities on the digits, fe et, ankles or lower legs.

Neurologic: Alert and oriented times 3, concen trating ability not decreased, symmetrical bulk, strength and tone in the low er extremities, coordination is normal.
Sensory examin ation-light touch intact on the L4-S1 dermatomes check your email
Motor ex amination-grossly intact
Coordination and tremors-no intentional or re sting tremors are noted, no adventitious movement noted
Muscle fasciculatio ns-no fasciculations noted in the lower extremity muscles
Atrophy-no atroph y noted in the intrinsic muscles of the feet, lower legs or thighs

Musculoskeletal: Able to rise from a chair and get up onto the orthopaedic examination table, painful swelling submetatarsal 2 on the left foot with burs al edema noted. There is no evidence of intermetatarsal neuroma in t he first or second intermetatarsal spaces. 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 A palpable Nan's sign can be appreciated on examination. There is no int ermetatarsal neuroma noted in the fourth intermetatarsal space of the left foot. There is no capsular inflammation or synovitis of the second meta tarsal phalangeal joint of the left foot. There is no tendinitis of the EDL or FDL tendons at the distal forefoot. No other musculoskeletal problems are noted on examination of the lower leg, ankle or foot.

Gait: Normal ga it and station, normal posture, no antalgia appreciated

This clin ic note/operative note was created using Ingenic software. The note was reviewed by myself for primary content. There may b e multiple small syntactical discrepancies and errors due to the voice jannet gnition limitations of the software-Dr. Mcrae.
</div>
--- NOTE | 2021-10-05 07:00 | DI.US_ITS ---
Exam(s) US PELVIS TRANSVAGINAL EXAM: US PELVIS TRANSVAGINAL CLINICAL HISTORY: pelvic organ prolapse,n81.10, for anatomy TECHNIQUE: Transabdominal and transvaginal imaging was performed using standard protocol. COMPARISON: CT CT RENAL COLIC WO from 07/23/2020 FINDINGS: KIDNEYS: Kidneys are symmetric in size. No evidence of renal calculi. No evidence of hydronephrosis. No renal mass or cyst identified. UTERUS: Anteverted. 6.5 x 3 x 4.2 cm Endometrium: 2 millimeters Myometrium: Unremarkable. No fibroids visible. Cervix: Unremarkable. OVARIES: Right: Cyst or mass: None. Normal size Left: Cyst or mass: None. Normal size CUL-DE-SAC: Free fluid: None. IMPRESSION: 1. Normal-appearing uterus with endometrial stripe within normal limits. 2. Unremarkable bilateral ovaries. DATA REPOSITORY:
== END ==
PROVIDERS: PCP Nurse Practitioner; Visit Provider Obstetrics & Gynecology
DX: N81.10 Cystocele, unspecified (principal)
CPT/HCPCS: 76830; 76856

== ENCOUNTER 2021-10-16 18:03 | Outpatient (REF) | payer OTHER, SELFPAY | END 2021-10-16 18:04 | disposition home or self-care (01) | LOC: LBN 18:03 | PROVIDERS: PCP Nurse Practitioner; Visit Provider Obstetrics & Gynecology | DX: M54.9 Dorsalgia, unspecified (principal) | CPT/HCPCS: 87077; 87086 ==

== ENCOUNTER → 2021-12-17 10:54 | Outpatient (BNVA) | payer OTHER, SELFPAY | PROVIDERS: PCP Nurse Practitioner; Referring Provider Nurse Practitioner; Visit Provider Nurse Practitioner Gerontology | DX: R10.2 Pelvic and perineal pain (principal); Z87.440 Personal history of urinary (tract) infections; N81.10 Cystocele, unspecified | CPT/HCPCS: 51798; 81003; 99215 ==

== ENCOUNTER 2021-12-17 21:11 | Outpatient (REF) | payer OTHER, SELFPAY | END 2021-12-17 21:12 | disposition home or self-care (01) | LOC: LBN 21:11 | PROVIDERS: PCP Nurse Practitioner; Visit Provider Nurse Practitioner Gerontology | DX: N39.0 Urinary tract infection, site not specified (principal) | CPT/HCPCS: 87086 ==

== ENCOUNTER 2022-01-29 03:18 | Outpatient (CLI) | payer OTHER, SELFPAY ==
[2022-01-29 12:28] LABS: Abs Immature Grans 0.05 10^3/uL (0.0-0.06); Absolute Basophil Count 0.09 10^3/uL (0.0-0.2); Absolute Eosinophil Count 0.18 10^3/uL (0.0-0.7); Absolute Lymphocyte Count 2.13 10^3/uL (1.2-3.4); Absolute Monocyte Count 0.93 10^3/uL (0.1-0.8); Absolute Neutrophil Count 5.02 10^3/uL (1.2-6.7); Basophils % 1.1; Eosinophils % 2.1; HCT 43.8 % (36.0-46.0); HGB 14.1 g/dL (11.2-15.7); Immature Grans % 0.6; Lymphocytes % 25.4; MCH 27.5 pg (27.0-33.0); MCHC 32.2 % (32.0-36.0); MCV 85 fL (80-95); MPV 9.1 fL (8.0-11.0); Monocytes % 11.1; Neutrophils % 59.7; Platelet Count 244 10^3/uL (130-400); RBC 5.13 10^6/uL (3.93-5.22); RDW 12.9 % (11.7-14.6); RDW-SD 40.1 fL
== END 2022-01-29 03:19 | disposition home or self-care (01) ==
LOC: LBO 03:18
PROVIDERS: PCP Nurse Practitioner; Visit Provider Obstetrics & Gynecology
DX: Z01.818 Encounter for other preprocedural examination (principal)
CPT/HCPCS: 36415; 86850; 86900; 86901; 85025

== ENCOUNTER 2022-01-29 19:00 | Outpatient (REF) | payer OTHER, SELFPAY ==
[2022-01-29 19:12] LABS: Source Nasal/Nares
[2022-01-29 20:22] LABS: COVID-19 PCR Negative (Negative)
== END 2022-01-29 19:01 | disposition home or self-care (01) ==
LOC: LBN 19:00
PROVIDERS: PCP Nurse Practitioner; Visit Provider Obstetrics & Gynecology
DX: Z01.818 Encounter for other preprocedural examination (principal); Z20.822 Contact with and (suspected) exposure to COVID-19
CPT/HCPCS: 87635

== ENCOUNTER 2022-01-30 06:02 | Observation (INO) | payer OTHER, SELFPAY ==
[2022-01-30 06:27] LABS: Source Nasal/Nares
[2022-01-30 06:32] VITALS: BP 190/80; PULSE 66; RESP 18; TEMP 36.6; O2SAT 97
[2022-01-30 06:36] VITALS: BP 190/80; PULSE 66; RESP 18; TEMP 36.6; O2SAT 97
[2022-01-30] MEDS: Lactated Ringers 1,000 ML 125 ML IV (06:52)
[2022-01-30 06:57] LABS: COVID-19 PCR Negative (Negative)
--- NOTE | 2022-01-30 08:04 | ANES.PREOP_ITS ---
General Info Date of Service Date Performed: 01/30/22 Height: 5 ft 1 in Weight: 92.7 kg Body Mass Index (BMI): 38.6 Surgical Procedure: Operation Date: 01/30/22 08:55 Proposed Procedure Side Surgeon p Hysterectomy Vaginal Laparoscopic Assist, Cystoscopy,Bilat Salpingectomy, Possible ROSY Manjula Gould DO s Anterior/Posterior Repair Manjula Gould DO Meds Allergies and Home Medications Allergies Allergy/AdvReac Type Severity Reaction Status Date / Time doxycycline Allergy Intermediate Skin Rash Verified 01/30/22 06:20 pravastatin Allergy Intermediate Skin Rash Verified 01/30/22 06:20 amlodipine AdvReac Intermediate leg cramps Verified 01/30/22 07:13 atenolol AdvReac Intermediate weakness Verified 01/30/22 07:13 codeine AdvReac Intermediate vomiting Unverified 01/30/22 07:13 hydrochlorothiazide AdvReac Intermediate cramping Verified 01/30/22 06:20 [From Hyzaar] legs lisinopril AdvReac Intermediate cough Verified 01/30/22 06:20 losartan [From Hyzaar] AdvReac Intermediate cramping Verified 01/30/22 06:20 legs Home Medication Medication Instructions Recorded losartan 25 mg tablet 25 mg PO DAILY 09/04/21 metoprolol succinate 50 mg capsule 50 mg PO HS 09/04/21 sprinkle, ext. release 24 hr ibuprofen 200 mg capsule 400 mg PO Q6H PRN 01/29/22 Current Visit Medications: Current Medications Generic Name Dose Route Start Last Admin Trade Name Freq PRN Reason Stop Dose Admin Ringer's Solution 1,000 mls @ 125 mls/hr 01/30/22 06:00 01/30/22 06:52 IV 02/28/22 23:59 125 mls/hr INFUSION CHELITA Administration Cefazolin Sodium/Dextrose 2 gm in 50 mls @ 100 mls/hr 01/30/22 06:00 Ancef Duplex IVPB 01/30/22 16:00 PREOP CHELITA IV Miscellaneous Supplies 1 each 01/30/22 06:00 Iv Access IV 02/28/22 23:59 DIRECTED CHELITA Sodium Chloride 0 ml 01/30/22 06:00 Normal Saline Flush 10 Ml Syr IV 02/28/22 23:59 PRN PRN Sodium Chloride 0 ml 01/30/22 06:00 Normal Saline 10 Ml Vial IJ 02/28/22 23:59 DIRECTED PRN Sterile Water 0 ml 01/30/22 06:00 Water,Injection,Sterile 10 Ml Vial IJ 02/28/22 23:59 DIRECTED PRN PFSH Active Problems Active Problems: Problem Status Onset Code Back pain M54.9 UTI (urinary tract infection) N39.0 Pelvic organ prolapse quantification stage 2 cystocele N81.10 Medical History Medical History Angina pectoris Coronary artery disease GERD (gastroesophageal reflux disease) High cholesterol Hypertension Pilonidal cyst Prolapsed uterus Pyelonephritis Surgical History Surgical History History of ankle surgery right History of cardiac catheterization History of colonoscopy Hx of appendectomy Tobacco Smoking/Tobacco Use Status: Never Alcohol Alcohol Intake: never Substance Use Substance use: Never Substance use type: does not use Prental History History 6 Para 5 Hx # Term Pregnancies 5 Multiple births Hx # Pregnancies Ectopic pregnancies AB induced Hx Number of Living Children 5 AB spontaneous Vital Signs and Lab Results Vital Signs Most Recent Vital Signs in EMR: Most Recent Vital Signs Temp Pulse Resp BP Pulse Ox 36.6 C 66 18 190/80 H 97 01/30/22 06:36 01/30/22 06:36 01/30/22 06:36 01/30/22 06:36 01/30/22 06:36 Lab Results Blood Type / Crossmatch: Patient ABO/Rh A Positive 01/29/22 Antibody Screen NEGATIVE 01/29/22 Complete Blood Count: White Blood Count 8.40 10^3/uL (4.4-10.8) 01/29/22 12:10 Red Blood Count 5.13 10^6/uL (3.93-5.22) 01/29/22 12:10 Hemoglobin 14.1 g/dL (11.2-15.7) 01/29/22 12:10 Hematocrit 43.8 % (36.0-46.0) 01/29/22 12:10 Platelet Count 244 10^3/uL (130-400) 01/29/22 12:10 Complete Metabolic Panel: No Data to Display Liver Function Panel: No Data to Display Coagulation Panel: No Data to Display Cardiac Panel: No Data to Display Arterial Blood Gas: No Data to Display Venous Blood Gas: No Data to Display Pancreas Panel: No Data to Display Thyroid Panel: No Data to Display Infectious Disease: Coronavirus (COVID-19)(PCR) Negative (Negative) 01/30/22 06:03 Coronavirus 2019 Source Nasal/Nares 01/30/22 06:03 Blood Cultures: No Data to Display Toxicology Panel: No Data to Display Imaging and Studies Imaging and Studies Study information below may be from another EMR and interpreted by another provider. Please see original notes in EMR for more complete details. EKG Summary: 02/27/2016: Sinus Bradycardia, Incomplete RBBB Cardiac Catheterization Summary: 08/02/2020: Anterior/apical infarct pattern felt most likely due to breast attenuation artifact (improved perfusion with stress), no hypokinesis, Preserved LV function. Anesthesia Assessment and Plan Anesthesia History Personal History: No History of Anesthesia Complications and Delayed Emergence Family History: No Family History of Anesthesia Complications Exercise Tolerance Exercise Tolerance: Metabolic Equivalents>4 Pertinent Negatives Pertinent Negatives: No Symptoms of GERD (Intermittent, no symptoms today), No Major Cardiovascular Symptoms or Complaints and No Major Pulmonary Symptoms or Complaints Cardiac & Pulmonary Exam Cardiac Exam: Normal S1/S2 Heart Sounds Pulmonary Exam: Clear Bilateral Breath Sounds Implantable Cardiac Device Does patient have a Pacemaker or an ICD?: No Airway Exam Known Difficult Airway: No Mallampati Class: 1 Mouth Opening: Normal (> 3cm) Thyromental Distance: Greater than 3 cm Neck Range of Motion: Full ROM Neck Circumference: Normal Teeth Condition: Normal Dentition and Removable Dentures/Plates Upper ASA Classification ASA Score: ASA 3 Emergency Case?: No NPO Status NPO Status: NPO Clears >2 hours, Solids >8 hours Anesthesia Plan Resuscitation Status: Full Code Anesthesia Technique: General Anesthesia Airway Planned: Endotracheal Tube Pain Management: Intrathecal Analgesia Monitors Used: Standard Monitors Preoperative Comments:: Patient reports she took her metoprolol dose last evening instead of this AM. Adventism, discussed. Planned intrathecal narcotic, GA/ETT, TIVA, overnight admission.
[2022-01-30 08:42] VITALS: BMI 38.6
[2022-01-30 09:42] VITALS: BP 201/77; PULSE 64; RESP 18; TEMP 36.7; O2SAT 97
--- NOTE | 2022-01-30 09:57 | W.ANESPOSTOP ---
Postoperative Evaluation Date, Time and Location Date Performed: 01/30/22 Time Performed: 09:57 Patient Location: Day Surgery Unit Vital Signs Most Recent Imported Vital Signs: Most Recent Vital Signs Temp Pulse Resp BP Pulse Ox 36.7 C 64 18 201/77 H 97 01/30/22 09:42 01/30/22 09:42 01/30/22 09:42 01/30/22 09:42 01/30/22 09:42 Pain Score Most Recent Pain Score: Most Recent Pain Score Pain Level 0 01/30/22 09:42 Assessment Mental Status: Awake (Alert & Oriented to Patient Baseline) Airway and Respiratory Function: Patent airway with normal (patient baseline) respiratory exam Cardiovascular Function: Hemodynamically Unstable (See Explanation) (Hemodynamics stable, but concerned for continued elevated blood pressure readings. Dr. Gould to reach out to PCP for further management.) Hydration Status: Adequately Hydrated Nausea & Vomiting: No Nausea or Vomiting Pain: Pt. Denies Any Pain Peripheral Nerve Block: Patient did not receive a nerve block Teaching Patient Teaching: Advised to seek followup for the following concerns (See explanation) Concerns: Poorly Controlled Hypertension
--- NOTE | 2022-01-30 09:58 | W.PM.PROGNOT ---
Date of Service Date of service: 01/30/22 Time of Service: 09:58 Subjective Subjective Interval history since last seen: Patient was seen preoperatively with a blood pressure of 190/90. He was taken the operating suite for preoperative intrathecal for pain control and noted to have blood pressures in the 150s over 120s, and due to these consistently elevated blood pressures, it was not prudent to proceed with a hysterectomy and anterior posterior colporrhaphy as an elective procedure. Her procedure is now postponed. Her primary care provider was contacted for close follow-up. She is currently asymptomatic. Having no headache, no visual changes, no chest pain. I did offer evaluation for hypertensive urgency in the emergency department. Patient adamantly refused. She will be seen by her primary care provider in the next 24 to 48 hours. We will proceed with her surgical correction when it is appropriate and she is medically stable to do so. All of her questions were answered today. Objective Last Vital Signs Temp 98.1 F 01/30/22 09:42 Pulse 64 01/30/22 09:42 Resp 18 01/30/22 09:42 BP 201/77 H 01/30/22 09:42 Pulse Ox 97 01/30/22 09:42 Laboratory Results - last 24 hr 01/30/22 06:03 COVID-19 Source Nasal/Nares SARS-CoV-2 (PCR) Negative
--- NOTE | 2022-01-30 09:58 | PDOC.ANES ---
Date of service: 01/30/22 Time of Service: 09:58 Anesthesia Note Report Anesthesia Note: Elective procedure canceled secondary to uncontrolled hypertension. Patient reports that she has been taking her prescribed oral antihypertensives, but clearly needs further management prior to elective surgery. Patient explained potential risks associated with uncontrolled hypertension to include stroke. Patient verbalizes understanding. Dr. Gould agrees with postponement of surgical case.
[2022-01-30 10:01] VITALS: BP 205/67
--- NOTE | 2022-01-30 10:41 | DSU.FORM ---
Patient left unit at 1025 with her sister Shoshana via ambulation. Patient to follow up with PCP r/t her BP. Patient case canceled d/t her increased BP.
== END 2022-01-30 10:25 | disposition home or self-care (01) | DRG 761 ==
LOC: PDS 02-01 10:48
PROVIDERS: Admitting Provider Obstetrics & Gynecology; PCP Nurse Practitioner; Visit Provider Obstetrics & Gynecology
PROC: 0UT9FZZ Resection of Uterus, Via Natural or Artificial Opening With Percutaneous Endoscopic Assistance (ICD-10-PCS; CPT 58550; principal; 2022-01-30 08:45)
PROC: (CPT 57260; 2022-01-30 08:45)
DX: N81.10 Cystocele, unspecified (principal); Z53.8 Procedure and treatment not carried out for other reasons; I10 Essential (primary) hypertension; K21.9 Gastro-esophageal reflux disease without esophagitis; E78.5 Hyperlipidemia, unspecified
CPT/HCPCS: 58550; 87635; 96360; J1100; J2405; J2704; J3010